=== PATIENT | female | born 1945 | race Caucasian/White ===

== ENCOUNTER 2018-06-17 10:35 | Outpatient (CLI) | payer MEDICARE, SELFPAY ==
[2018-06-17 13:08] LABS: ALT 64 U/L (12-78); AST 47 U/L (15-37); Alkaline Phosphatase 83 U/L (46-116); Anion Gap 9.4 mmol/L (3-11); BUN 8 mg/dL (7-18); Bilirubin, Total 0.5 mg/dL (0.2-1.0); CO2 30.6 mmol/L (21.0-32.0); CREATININE 0.71 mg/dL (0.55-1.02); Calcium 9.4 mg/dL (8.5-10.1); Chloride 101 mmol/L (98-107); Cholesterol 261 mg/dL (50-200); Glucose 96 mg/dL (70-100); HDL Cholesterol 95 mg/dL (40-60); LDL CHOLESTEROL 138 mg/dL (<100); Potassium 3.5 mmol/L (3.5-5.1); Sodium 141 mmol/L (136-145); Total Protein 7.1 g/dL (6.4-8.2); Triglyceride 118 mg/dL (30-150)
[2018-06-19 07:30] LABS: Vitamin D 25 Total 50.6 ng/ml (30-100)
== END 2018-06-17 10:55 ==
PROVIDERS: PCP Family Medicine; Visit Provider Family Medicine
DX: I10 Essential (primary) hypertension (principal); E55.9 Vitamin D deficiency, unspecified
CPT/HCPCS: 36415; 80053; 80061; 82306; 83721

== ENCOUNTER 2018-06-30 14:12 | Outpatient (REF) | payer MEDICARE, SELFPAY ==
--- NOTE | 2018-06-30 13:30 | PAPFT_PTH ---
PATIENT: Pipe Love LOC: [facility] U#:[id number] AGE/SX: 72/F ROOM: RE06/30/[address]: CARMINE Giron : 1945 BED: DIS: 06/30/2018 SPEC #: [id number] RECD: 06/30/18 17:56 STATUS: SVEN REDharmesh #: [id number] ADIN: 06/30/18 13:[address]: Salome Garcia DEPT: [facility] Cytology RECD BY: Melania Knapp ENTERED: 06/30/18 17:56 SP TYPE: PAPFT OTHR DR: Jud De La Paz MD, DC Tissues: 1 - CX/ENDOCX FOR PAP SMEARS Procedures: PAP THIN PREP/UVM Screening Comments: [id number]
== END 2018-06-30 14:32 ==
LOC: LBN 14:12
PROVIDERS: PCP Family Medicine; Visit Provider Nurse Practitioner Family
DX: Z12.4 Encounter for screening for malignant neoplasm of cervix (principal)
CPT/HCPCS: 88142

== ENCOUNTER 2018-11-13 08:27 | Outpatient (CLI) | payer MEDICARE, SELFPAY ==
--- NOTE | 2018-11-13 08:37 | DI.US_ITS ---
SYMPTOM/DIAGNOSIS; ENLARGING THYROID, ENLARGED THYROID GLAND E04.9, NONTOXIC GOITER THYROID ULTRASOUND: 11/13/18 Thyroid ultrasound was performed according to the usual protocol. Right thyroid lobe measures 48 x 17 x 14 mm. The left thyroid lobe measures 41 x15 x 17 mm Thyroid parenchyma is mildly heterogeneous. There are multiple small intraparenchymal cysts seen in both thyroid lobes. There is complex mass measuring 14 mm in greatest diameter with mildly increased intralesional vascular flow in the mid pole of the left thyroid lobe. CONCLUSION: Indeterminate left thyroid lobe 14 mm mass. Follow up ultrasound suggested in 6 months. Tissue sampling may be considered if clinically indicated.
[2018-11-13 09:48] LABS: TSH (W/Ref FT4) 1.61 uIU/mL (0.36-3.74)
== END 2018-11-13 08:47 ==
PROVIDERS: PCP Family Medicine; Visit Provider Family Medicine
DX: E04.1 Nontoxic single thyroid nodule (principal); E07.89 Other specified disorders of thyroid
CPT/HCPCS: 36415; 76536; 84443

== ENCOUNTER 2018-12-15 10:58 | Outpatient (CLI) | payer MEDICARE, SELFPAY ==
[2018-12-15 13:02] LABS: TSH (W/Ref FT4) 1.78 uIU/mL (0.36-3.74)
--- NOTE | 2018-12-15 13:38 | DI.RAD_ITS ---
SYMPTOMS/DIAGNOSIS: CERVICALGIA X 3 MOS, M54.2 CERVICAL SPINE: Eight views were obtained. Prevertebral soft tissues appear intact. Intervertebral disc spaces appear fairly well maintained. Mild hypertrophic spurring seen involving the facet joints throughout the cervical region and there is anterior endplate spurring at the C6-7 level. No gross erosive or destructive lesions seen. Neural foramina appear predominantly well maintained with questioned narrowing left neural foramen at C6-7 level. CONCLUSION: Degenerative changes of the cervical spine as described above.
== END 2018-12-15 11:18 ==
PROVIDERS: PCP Family Medicine; Visit Provider Family Medicine
DX: E07.9 Disorder of thyroid, unspecified (principal); M54.2 Cervicalgia; M47.812 Spondylosis without myelopathy or radiculopathy, cervical region
CPT/HCPCS: 36415; 72050; 84443

== ENCOUNTER 2019-06-23 11:47 | Outpatient (CLI) | payer MEDICARE, SELFPAY ==
[2019-06-23 13:59] LABS: FREE T4 0.98 ng/dL (0.76-1.46); TSH 1.68 uIU/mL (0.36-3.74)
[2019-06-23 16:21] LABS: T3,Free 4.1 pg/mL (2.8-5.3)
[2019-06-23 16:33] LABS: T3, Total 136 ng/dL (97-169)
[2019-06-24 09:04] LABS: Thyroglobulin Antibody 17 U/mL (<=60); Thyroperoxidase Antibody <28 U/mL (<=60)
[2019-06-25 15:07] LABS: Thyroid Stimulating Immunoglob <1.0 TSI index (<=1.3)
== END 2019-06-23 12:07 ==
PROVIDERS: PCP Family Medicine; Visit Provider Family Medicine
DX: E06.3 Autoimmune thyroiditis (principal); E07.9 Disorder of thyroid, unspecified; I10 Essential (primary) hypertension
CPT/HCPCS: 36415; 86376; 84439; 84443; 84445; 84480; 84481

== ENCOUNTER 2019-09-02 01:07 | Outpatient (CLI) | payer MEDICARE, SELFPAY ==
--- NOTE | 2019-09-02 12:28 | DI.MAMMO_ITS ---
EXAM: MAMMO SCREENING CLINICAL HISTORY: screening,Z12.39 TECHNIQUE: Mammograms were interpreted according to the usual protocol including computer analysis w thinking[employer] CAD system, tomosynthesis and C-view imaging. COMPARISON: 2010 through 2017 FINDINGS: The breasts are composed of heterogeneously dense fibroglandular densities, Breast Density category C . No suspicious masses or suspicious microcalcifications are seen. No skin thickening or abnormal axillary lymph nodes are seen. There has been no significant change from prior exams. IMPRESSION: BI-RADS Category 1: Negative mammogram. Yearly screening mammography is recommended. Breast density category C, heterogeneously dense tissue which decreases the sensitivity of the mammog beltran. The mammogram demonstrates the patient's breast tissue is dense. Dense breast tissue is very common a nd is not abnormal but dense breast tissue can make it harder to find cancer on a mammogram. Also, de nse breast tissue may increase breast cancer risk. This information about the result of the mammogram report was provided to the patient to raise their awareness. Use this report when you speak with the patient about their risks for breast cancer, which includes their family history. At that time, you may recommend additional screening tests (Ultrasound or MRI) as they might be useful based on their r isk. A negative radiographic report should not delay biopsy if a dominant or clinically suspicious mass is present. Up to ten percent of cancers are not identified on mammography. A negative report may reinforce clinical impression. Adenosis and dense breasts may obscure an underlying neoplasm. False positive reports average 6 to 10%.
== END 2019-09-02 01:27 ==
PROVIDERS: PCP Family Medicine; Visit Provider Family Medicine
DX: Z12.31 Encounter for screening mammogram for malignant neoplasm of breast (principal)
CPT/HCPCS: 77063; 77067

== ENCOUNTER 2020-01-22 14:26 | Outpatient (REF) | payer MEDICARE, SELFPAY ==
--- NOTE | 2020-01-22 14:00 | PAPFT_PTH ---
PATIENT: Pipe Love LOC: [facility] U#:[id number] AGE/SX: 74/F ROOM: RE01/22/[address]: CARMINE Giron : 1945 BED: DIS: 01/22/2020 SPEC #: [id number] RECD: 01/22/20 15:54 STATUS: WALLYFidelina REQ #: [id number] ADIN: 01/22/20 14:[address]: Salome Garcia DEPT: [facility] Cytology RECD BY: Isaura Thompson ENTERED: 01/22/20 15:55 SP TYPE: PAPFT OTHR DR: Jud De La Paz MD, DC Tissues: 1 - CX/ENDOCX FOR PAP SMEARS Procedures: PAP THIN PREP/UVM Screening HPV DNA PROBE Comments: [id number]
== END 2020-01-22 14:46 ==
LOC: LBN 14:26
PROVIDERS: PCP Family Medicine; Visit Provider Nurse Practitioner Family
DX: Z12.4 Encounter for screening for malignant neoplasm of cervix (principal); Z11.51 Encounter for screening for human papillomavirus (HPV); Z87.42 Personal history of other diseases of the female genital tract; Z86.002 Personal history of in-situ neoplasm of other and unspecified genital organs
CPT/HCPCS: 88142; 87624

== ENCOUNTER 2020-03-23 13:13 | Observation (INO) | payer MEDICARE, SELFPAY ==
[2020-03-23] VITALS (26 sets, daily range): BP systolic 105–149; BP diastolic 57–93; PULSE 67–87; RESP 12–38; TEMP 36.4–36.6; O2SAT 94–97
--- NOTE | 2020-03-23 13:15 | RT.EKG_ITS ---
APPROVED REPORT Exam: Resting ECG Patient Location: E HR:81 bpm ECG Measurements Heart Rate 81 AXIS [place] 192 P 62 QRSd 89 QRS 0 QT 413 T 56 QTc 479 Conclusion Sinus rhythm...normal P axis, V-rate 60- 99 Ventricular bigeminy...bigeminy string>4 w/ V complexes Low voltage, precordial leads...precordial leads <1.0mV Borderline ST depression, anterolateral leads...ST <-0.07mV, I aVL V2-V6
[2020-03-23] MEDS: Normal Saline Flush 10 ML SYR IVP ×2 (13:25→19:26)
[2020-03-23] MEDS: Aspirin 81 MG CHEW 324 MG CH (13:33)
[2020-03-23 13:36] LABS: Abs Immature Grans 0.02 10^3/uL (0.0-0.06); Absolute Basophil Count 0.02 10^3/uL (0.0-0.2); Absolute Eosinophil Count 0.26 10^3/uL (0.0-0.7); Absolute Lymphocyte Count 2.61 10^3/uL (1.2-3.4); Absolute Monocyte Count 0.77 10^3/uL (0.1-0.8); Absolute Neutrophil Count 5.23 10^3/uL (1.2-6.7); Basophils % 0.2; Eosinophils % 2.9; HCT 44.8 % (36.0-46.0); HGB 15.5 g/dL (11.2-15.7); Immature Grans % 0.2; Lymphocytes % 29.3; MCH 36.2 pg (27.0-33.0); MCHC 34.6 % (32.0-36.0); MCV 104.7 fL (80-95); MPV 8.8 fL (8.0-11.0); Monocytes % 8.6; Neutrophils % 58.8; Nucleated RBC 0 %; Platelet Count 235 10^3/uL (130-400); RBC 4.28 10^6/uL (3.93-5.22); RDW 12.3 % (11.7-14.6); WBC 8.91 10^3/uL (4.4-10.8)
--- NOTE | 2020-03-23 13:43 | DI.CT_ITS ---
EXAM: CT CHEST PE CTA CLINICAL HISTORY: Chest pain, SOB. TECHNIQUE: Imaging Protocol: CT angiography of the chest was performed using pulmonary embolus ken col. Multi planar reconstructions were performed. CONTRAST MATERIAL: Intravenous: Omnipaque 350 Contrast volume: 100 cc COMPARISON: No exams were available for comparison FINDINGS: CHEST: PULMONARY ARTERIES: There are no intraluminal filling defects to suggest acute pulmonary emboli. LUNGS: There are no infiltrates nor evidence of pulmonary infarction.. There is a 4 millimeter noncal cified nodule in the right upper lobe (series 5/image 26). Also subtle ground-glass nodular infiltra reji in the right upper lobe noted,. Another 3 millimeter nodule contiguous with the major fissure. In the opposite-left lung there is a 5 millimeters subpleural nodule in the superior segment of the l eft lower lobe. Also small subpleural bullae are noted. No pleural effusions. MEDIASTINUM: There is no hilar nor mediastinal adenopathy. Visualized thyroid unremarkable. CARDIAC: Heart size is normal. There is no pericardial effusion.Caliber of the thoracic aorta is wit hin normal limits. There is no evidence of shift of the interventricular septum. OSSEOUS: No significant osseous lesions.. PARTIALLY VISUALIZED UPPERMOST ABDOMEN: There is a subcapsular lesion in the right hepatic lobe which is well-defined and measures 2.6 by 1.7 centimetres. Difficult to determine nature this well-define d lesion on this type study. Possibly a cyst. Recommend ultrasound as a next step. IMPRESSION: 1. No evidence of acute pulmonary emboli. No evidence of pulmonary infarction.No pleural effusions. 2. Incidentally noted are small nodular densities in the lung zhou as described above measuring up to 5 millimeters and requiring appropriate follow-up. 3. Well-defined subcapsular 26 x 17 millimeter finding in the right hepatic lobe which is difficult t o assess on this type of study. Possibly cyst. Recommend ultrasound follow-up. RADIATION DOSE DELIVERED: 412.67mGy.cm Total DLP DATA REPOSITORY: All CT scans at this facility are submitted to the National Radiology Data Registry (NRDR) Dose Index Registry (DIR) with the [employer] (ACR). RADIATION OPTIMIZATION: All CT scans at this facility use at least one of these dose optimization te chniques: automated exposure control; mA and/or kV adjustment per patient size (includes targeted exa ms where dose is matched to clinical indication); or iterative reconstruction.
--- NOTE | 2020-03-23 13:43 | W.ED.GENAD ---
Discharge Plan Disposition Patient Disposition: [facility] INPATIENT Condition: Stable Discharge Details Clinical Impression: Acute hypokalemia, Chest pain Primary Care Provider: Jud De La Paz ED Provider: Jennifer Elliott Home Meds and New Rx's Prescriptions: No Action red yeast rice 600 mg capsule 600 mg PO DAILY RF: 0 gwuinss-jfkovvxqv-upet Tablet See Rx Instructions PO DAILY RF: 0 CENTRUM SILVER TABLET 1 EACH tablet 1 ea PO DAILY RF: 0 cholecalciferol (vitamin D3) 1,000 UNIT capsule 1,000 unit PO DAILY RF: 0 hydrochlorothiazide 12.5 mg tablet 12.5 mg PO DAILY Qty: 90 RF: 12 verapamil 120 mg tablet extended release 120 mg PO DAILY Qty: 90 RF: 12 Medical Decision Making 74-year-old female presents to the ED with chief complaint of chest pain or shortness of breath. Patient states at 4 AM chest pain woke her up out of her sleep. She describes it as midsternal with radiation up into her bilateral shoulders and into her bilateral neck. She thought that it might be indigestion. She said it gradually decreased over time. She rates it a 1 out of 10 currently. She is having a little bit of belching. She did take 2 baby aspirins prior to arrival. 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 tach which she takes verapamil for. She does have a history of hypertension, hyperlipidemia, mild intermittent asthma. She does not smoke. Pain increases with deep breathing. She did travel recently in a car to [place] which approximately 1 hour and 1/[address] Work-up ordered including CBC, CMP, serial troponins, EKG, CT chest PE protocol rule out PE. Heart score is a 5 EKG was reviewed by Dr. Ha Maldonado MD ER attending, please see his official report. 1358: Critical potassium received from the lab testing is 2.9. Magnesium is 1.7, Will order 1 gm Magnesium and will give 40 meq Kcl PO liquid now. Initial troponin is negative. 1610: Patient returns from CT chest has increasing chest pain. Nitro 0.4 mg sublingual as needed chest pain x3 ordered. Patient received 1 sublingual 0.4 mg nitro which brought her pain from a 3-4 down to 1-2. Her blood pressure went from 140 systolic to 108 systolic. Discussed recommendation for admission for serial troponin and echocardiogram and stress testing which patient agrees to the plan. Parth jimenez hospitalist. 1546: Spoke with Dr. Moffett who agrees to accept patient for cardiac rule out. CT chest Result: IMPRESSION: 1. No evidence of acute pulmonary emboli. No evidence of pulmonary infarction.No pleural effusions. 2. Incidentally noted are small nodular densities in the lung zhou as described above measuring up to 5 millimeters and requiring appropriate follow-up. 3. Well-defined subcapsular 26 x 17 millimeter finding in the right hepatic lobe which is difficult to assess on this type of study. Possibly cyst. Recommend ultrasound follow-up. HPI General Mode of arrival: ambulatory. Date/Time Provider Initiated Documentation: 03/23/20 13:13. Limitations to Documentation: no limitations. Information obtained by: patient. HPI Narrative: 74-year-old female presents to the ED with chief complaint of chest pain or shortness of breath. Patient states at 4 AM chest pain woke her up out of her sleep. She describes it as midsternal with radiation up into her bilateral shoulders and into her bilateral neck. She thought that it might be indigestion. She said it gradually decreased over time. She rates it a 1 out of 10 currently. She is having a little bit of belching. She did take 2 baby aspirins prior to arrival. 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 tach which she takes verapamil for. She does have a history of hypertension, hyperlipidemia, mild intermittent asthma. She does not smoke. Pain increases with deep breathing. She did travel recently in a car to [place] which approximately 1 hour and 1/[address] Related Data Home Medications Medication Instructions Recorded Confirmed Centrum Silver Tablet 1 ea PO DAILY 08/26/12 12/22/19 cholecalciferol (vitamin D3) 1,000 unit PO DAILY 10/29/17 12/22/19 red yeast rice 600 mg capsule 600 mg PO DAILY 06/17/18 12/22/19 hydrochlorothiazide 12.5 mg tablet 12.5 mg PO DAILY #90 tab 06/16/19 12/22/19 verapamil 120 mg tablet,extended 120 mg PO DAILY #90 tab-cap 06/16/19 12/22/19 release [id number]-[id number] tablet See Rx Instructions PO DAILY tab 06/23/19 12/22/19 Previous Rx's Medication Instructions Recorded hydrochlorothiazide 12.5 mg tablet 12.5 mg PO DAILY #90 tab 06/16/19 verapamil 120 mg tablet,extended 120 mg PO DAILY #90 tab-cap 06/16/19 release Allergies Allergy/AdvReac Type Severity Reaction Status Date / Time Sulfa (Sulfonamide AdvReac Severe Bloody Unverified 03/23/20 13:26 Antibiotics) diarrhea ciprofloxacin [From Cipro] AdvReac Intermediate BLOODY Unverified 03/23/20 13:26 DIARRHEA bug spray Allergy Intermediate asthma Uncoded 03/23/20 13:26 General Stated Complaint: Chest Pain BRYCE: 2 Review of Systems Narrative: Constitutional: Negative for weight loss, alert and oriented, well groomed, normal body habitus, appears comfortable. HEENT: Denies trauma, headaches, blurry vision, nasal discharge, sore throat, trouble swallowing. Chest: Denies palpitations, irregular rhythm, positive chest pain, Respiratory: Denies cough, hemoptysis. Reports increased shortness of breath and increased pain with deep breathing. GI: Denies abdominal pain, nausea, vomiting, diarrhea, constipation. : Denies dysuria, hematuria, flank pain, rectal bleeding. Neuro: Denies dizziness, blurry vision, weakness, syncope, headache or facial numbness. Hematologic: Denies easy bruising, intolerance to heat or cold, hair loss. 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) Essential hypertension Sari's disease Hyperlipidemia Irritable colon (05/31/08) Labial lesion (12/15/14) Metatarsal bone fracture (05/31/08) Mild intermittent asthma (03/08/17) Osteopenia (05/31/08) Personal history of cervical dysplasia (07/05/11) CIS 1992 w/ Laser cone BX HSIL LES 1997 w/ excisional cone BX-treated in [place] at [facility] exposure to MOHSEN Polyp of colon 10/14/06 TUBULAR ADENOMA 01/10/11 TA on three year recall for colonoscopy tubular adenoma, 08/07/16, dr go Seasonal allergic rhinitis Smoker (05/31/08) Thyroid mass (~11/13/18) 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 2 aunts Breast cancer Father , age 42 Alcohol abuse Brother Essential hypertension Hyperlipidemia Maternal Grandfather , age 72 No problems noted. Paternal Grandfather No problems noted. Maternal Grandmother , age 93 Essential hypertension Paternal Grandmother No problems noted. Sister No problems noted. Daughter No problems noted. Social History Smoking/Tobacco Use Status: Former Tobacco Use Quit Date: 04/08/84 Tobacco: How many years used: 20 Smoking risk assessment performed?: Yes Alcohol Intake: current Alcohol Intake frequency: 3 or more drinks per day Alcohol type: wine Drug use: Never Caregiver/Support person: No Housing: house Communication Needs: None Do you need help understanding health information?: Rarely Pets and animals: No Sexually active: Yes Do you think of yourself as: straight/heterosexual Current gender identity: female What is your relationship status?: How often do you talk on the phone with friends or family?: three or more times per week How often do you get together with friends or relatives?: once per week How often do you attend voodoo or adventist services?: decline to answer Do you belong to any clubs or organized social groups?: no Panel score (0-1 are the most socially isolated patients): 1 What type of physical activity do you participate in: decline to answer Duration: decline to answer Frequency: decline to answer Zakiya/Religious: None Special zakiya needs: No Seatbelt use: always Helmet use: Yes Helmet use: always Drive intox or ride w/intox team driver: No Do you feel safe at home: Yes Do you feel safe in your relationship?: Yes Exam Narrative Exam Narrative: Constitutional: Alert and oriented x3. Appears stated age. Normal body habitus. Head: Normocephalic, no trauma. Eyes: Pupils PERRLA, Red reflex noted, EOM's intact. Eyelids symmetrical without lesions, discharge, or swelling. ENT: Bilateral TM's WNL, External ear normal to inspection, no mastoid TTP, swelling, or erythema, Nasal turbinates WNL, no nasal discharge. Normal dentition, Posterior pharynx WNL, no exudate. Chest: RRR, Normal S1, S2, distal pulses intact. Chest is nontender to palpation chest pain is nonreproducible. Resp: Lungs clear to auscultation bilaterally, no wheezes, rales, or rhonchi. Musculoskeletal: Normal gait, 5/5 strength to all four extremities. Skin: No suspicious rashes or lesions. Capillary refill less than 2 sec. Neurologic: Cranial nerves II-XII intact. Alert and oriented x 3. DTR's intact. Hematologic/Lymphatic: No ecchymosis, no lymphadenopathy. Course Vital Signs Vital signs: Vital Signs Temperature 36.4 C L 03/23/20 13:18 Pulse 74 03/23/20 13:18 Respiratory Rate 12 03/23/20 13:18 Blood Pressure 138/75 03/23/20 13:18 Pulse Oximetry 97 03/23/20 13:18 Temperature 36.4 C L 03/23/20 13:18 Temperature Source Skin 03/23/20 13:18 Pulse 74 03/23/20 13:18 Respiratory Rate 14 03/23/20 13:34 Respiratory Effort 03/23/20 13:34 Respiratory Depth Normal 03/23/20 13:34 Respiratory Pattern Normal 03/23/20 13:34 Blood Pressure 138/75 03/23/20 13:18 Pulse Oximetry 97 03/23/20 13:18 Oxygen Delivery Method Room Air 03/23/20 13:18 Oxygen Flow Rate 0 03/23/20 13:18 Pain Level 1 03/23/20 13:34 Lab/Test Results Lab/Test Results: Laboratory Tests Range/Units 03/23/20 13:30 WBC (4.4-10.8) 10^3/uL 8.91 RBC (3.93-5.22) 10^6/uL 4.28 Hgb (11.2-15.7) g/dL 15.5 Hct (36.0-46.0) % 44.8 MCV (80-95) fL 104.7 H MCH (27.0-33.0) pg 36.2 H MCHC (32.0-36.0) % 34.6 RDW (11.7-14.6) % 12.3 Plt Count (130-400) 10^3/uL 235 MPV (8.0-11.0) fL 8.8 Immature Gran % 0.2 Neutrophils % 58.8 Lymphocytes % 29.3 Monocytes % 8.6 Eosinophils % 2.9 Basophils % 0.2 Nucleated RBC % % 0 Absolute Neutrophils (1.2-6.7) 10^3/uL 5.23 Absolute Lymphocytes (1.2-3.4) 10^3/uL 2.61 Absolute Monocytes (0.1-0.8) 10^3/uL 0.77 Absolute Eosinophils (0.0-0.7) 10^3/uL 0.26 Absolute Basophils (0.0-0.2) 10^3/uL 0.02
[2020-03-23 13:54] LABS: ALT 187 U/L (14-59); AST 126 U/L (15-37); Albumin 3.9 g/dL (3.4-5.0); Alkaline Phosphatase 78 U/L (46-116); Anion Gap 10.5 mmol/L (3-11); BUN 8 mg/dL (7-18); Bilirubin, Total 0.5 mg/dL (0.2-1.0); CO2 28.5 mmol/L (21.0-32.0); CREATININE 0.73 mg/dL (0.55-1.02); Calcium 9.5 mg/dL (8.5-10.1); Chloride 99 mmol/L (98-107); Glucose 104 mg/dL (74-106); Magnesium 1.7 mg/dL (1.8-2.4); Sodium 138 mmol/L (136-145); Total Protein 7.5 g/dL (6.4-8.2)
[2020-03-23 13:58] LABS: Potassium 2.9 mmol/L (3.5-5.1); Troponin I < 0.05 ng/mL (<0.06)
[2020-03-23 14:02] LABS: TSH (W/Ref FT4) 1.34 uIU/mL (0.36-3.74)
[2020-03-23] MEDS: Potassium Chloride Liquid 20 MEQ PKT 40 MEQ PO (14:31)
[2020-03-23] MEDS: MAGNESIUM SULFATE 1 GM/100 ML BAG IVPB (14:32)
[2020-03-23] MEDS: Omnipaque 350 MG/ML 100 ML BTL IJ (14:57)
[2020-03-23] MEDS: Normal Saline - Diluent 50 ML VIAL IV (14:58)
[2020-03-23] MEDS: nitroGLYcerin 0.4 MG TAB SL (15:13)
[2020-03-23 16:47] LABS: Troponin I < 0.05 ng/mL (<0.06)
[2020-03-23] MEDS: Famotidine 20 MG TAB PO (17:32)
[2020-03-23] MEDS: Potassium Chloride Liquid 20 MEQ PKT PO (19:06)
[2020-03-23 21:50] LABS: Troponin I < 0.05 ng/mL (<0.06)
[2020-03-24 05:43] VITALS: BP 104/55; PULSE 85; RESP 18; TEMP 36.5; O2SAT 96
[2020-03-24] MEDS: Normal Saline Flush 10 ML SYR IVP (05:51)
[2020-03-24 07:20] VITALS: BP 131/79; PULSE 82; RESP 19; TEMP 36.7; O2SAT 98
[2020-03-24 07:23] LABS: Anion Gap 8.6 mmol/L (3-11); BUN 10 mg/dL (7-18); CO2 27.4 mmol/L (21.0-32.0); CREATININE 0.82 mg/dL (0.55-1.02); Calcium 8.9 mg/dL (8.5-10.1); Chloride 102 mmol/L (98-107); Glucose 112 mg/dL (74-106); Magnesium 1.7 mg/dL (1.8-2.4); Potassium 3.5 mmol/L (3.5-5.1); Sodium 138 mmol/L (136-145)
[2020-03-24 07:28] LABS: Troponin I < 0.05 ng/mL (<0.06)
[2020-03-24] MEDS: Potassium Chloride Liquid 20 MEQ PKT PO (07:36)
[2020-03-24 07:37] VITALS: PULSE 87
[2020-03-24] MEDS: hydroCHLOROthiazide 12.5 MG TAB PO (08:12)
[2020-03-24] MEDS: Cholecalciferol (Vitamin D3) 1,000 UNIT TAB 1000 UNITS PO (08:12)
--- NOTE | 2020-03-24 08:27 | DI.US_ITS ---
APPROVED REPORT EXAM: Comprehensive 2D, Doppler, and color-flow Echocardiogram Patient Location: In-Patient [facility] [employer] Tender: Adrienne Brownlee RDCS (AE) Indications: Chest pain, HTN, SOB Other Information Study Quality: Fair Conclusion Left Ventricle : The left ventricle is normal size. The left ventricular systolic function is normal. The left ventricular ejection fraction is within the normal range. There is normal left ventricular wall thickness. There is normal LV segmental wall motion. The left ventricular diastolic function is normal. LVEF is 60%. Right Ventricle : The right ventricle is normal size. The right ventricular systolic function is norm al. The RVSP is 30.9 mmHg. Atria : The left atrium size is normal. The right atrium size is normal. Valves: There are no hemodynamically significant valvular lesions Great Vessels : The aortic root is normal in size. The ascending aorta is normal in size. Descending aorta is normal in caliber. IVC is normal in size and collapses >50% with inspiration. Compared to study from 05/28/2013, there is no significant change. Wall motion Left Ventricle The left ventricle is normal size. The left ventricular systolic function is normal. The left ventric ular ejection fraction is within the normal range. There is normal left ventricular wall thickness. T here is normal LV segmental wall motion. The left ventricular diastolic function is normal. There is no ventricular septal defect visualized. LVEF is 60%. Right Ventricle The right ventricle is normal size. The right ventricular systolic function is normal. The RVSP is 30 .9 mmHg. Atria The left atrium size is normal. The right atrium size is normal. The interatrial septum is intact wit h no evidence for an atrial septal defect. Aortic Valve The aortic valve is normal in structure. Aortic valve is trileaflet. There is no aortic valvular sten osis. No aortic regurgitation is present. Mitral Valve The mitral valve is normal in structure. There is mitral annular calcification. The mitral valve chor valentine are thickened and/or calcified. No evidence of mitral valve stenosis. Trace mitral regurgitation. Tricuspid Valve The tricuspid valve is normal in structure. There is no tricuspid valve stenosis. Trace tricuspid reg urgitation. Pulmonic Valve The pulmonary valve is normal in structure. There is no pulmonic valvular stenosis. Trace pulmonic re gurgitation. Great Vessels The aortic root is normal in size. The ascending aorta is normal in size. Descending aorta is normal in caliber. IVC is normal in size and collapses >50% with inspiration. Pericardium There is no pericardial effusion. 2D Dimensions IVSD d PLAX 0.96 cm F: 0.6-1.0 LV Vol A2C d MOD 72.9 mL LVPW d PLAX 0.99 cm F: 0.6 - 1.0 LV Vol A4C d MOD 61.6 mL LVID d PLAX 4.33 cm F: 3.8 - 5.2 LA vol/ BSA A2C s A-L 39.2 mL/m2 LVDs 2.90 cm F: 2.2 - 3.5 LA vol/ BSA A4C s A-L 37.0 mL/m2 Ao Root d 2.71 cm F: 2.7 - 3.3 LA Vol/ BSA Biplane s A-L 38.5 mL/m2 RA Area A4C 15.17 cm2 LA Area A4C s MOD 20.97 cm2 RA Vol/ BSA A4C s A-L 22.3 mL/m2 LA Area A2C s MOD 21.38 cm2 Ao Asc Diam d 2.71 cm F: 2.3 - 3.1 LV EF A4C MOD 59.5 % LV EF Teichholz 60.6 % LV EF A2C MOD 56.6 % LVEF (Massey's) 58.38 % F: 54 - 74 LV EF Biplane MOD 58.4 % LV Volume 54.50 mL F: 46 - 106 SV 41.02 mL LV Volume Index 30.11 mL/m2 F: 29 - 61 SV Index 22.62 mL/m2 LV Vol Biplane MOD 70.3 mL FS 32.15 % M-Mode TAPSE 1.67 cm (M/F) >1.7 LV Diastology MV E' medial 0.090 (>0.07 m/s) E/A Ratio 0.9 LV E/e MED 8.15 (<14) MV E Vmax 0.73 (0.4-1.3 m/s) MV E' lateral 0.079 (>0.1 m/s) MV A Vmax 0.85 (0.4-1.3 m/s) LV E/e LAT 9.25 (<14) MV E/A Ratio 0.85 MV E/E' medial 8.16 MV E/E' lateral 9.27 Aortic Valve LVOT Area 2.78 cm2 AoV Area Vmax 2.34 cm2 LVOT Vmax 1.26 m/s AoV Area/ BSA (Vmax) 1.29 cm2/m2 LVOT Mean Taj. 0.74 m/s RUDOLPH Mean Taj. 2.06 cm2 LVOT Peak Grad 6.4 mmHg RUDOLPH Mean Taj. Index 1.14 cm2/m2 LVOT Mean Grad 2.7 mmHg LVOT VTI 0.240 m LVOT Diam s 1.85 cm AoV Vmax 1.50 m/s Velocity Ratio 0.84 AoV Mean Taj. 1.00 m/s AoV Peak Grad 9.0 mmHg LVOT SV 66.69 mL AoV Mean Grad 4.6 mmHg AoV VTI 0.291 m AoV Area VTI 2.29 cm2 AoV Area/ BSA (VTI) 1.26 cm/m2 Mitral Valve MV DT 211 (160-240 msec) MV PHT 61 msec MV Area PHT 3.59 cm2 MV VTI 0.214 m MV VTI Annulus 0.213 m MV Area VTI 3.12 (4.0-6.0 cm2) Pulmonary Valve PV Vmax 1.28 (0.5-1.5 m/s) RVOT Peak Gr. 2.97 mmHg PV Peak Grad 6.5 mmHg RVOT Mean Gr. 1.45 mmHg PV Mean Grad 3.3 mmHg RVOT VTI 0.188 m PV VTI 0.277 m RVOT Vmax 0.86 m/s Tricuspid Valve TR Peak Grad 27.8 mmHg TR Vmax 2.64 m/s RA Pressure 3.00 mmHg RVSP (TR) 30.9 mmHg
[2020-03-24 09:24] LABS: COVID-19 RT-PCR UVMMC Result Negative (Negative)
[2020-03-24] MEDS: Potassium Chloride 20 MEQ TABCR PO (09:24)
[2020-03-24] MEDS: Magnesium Oxide 400 MG TAB 800 MG PO (09:24)
--- NOTE | 2020-03-24 10:04 | W.PM.HP.N ---
Date of service: 03/23/20 Time of Service: 16:39 Assessment and Plan Assessment and plan (1) Chest pain: Status: Acute Assessment and plan: Atypical but has risk factors. Complete a series of troponin levels. Echocardiogram in the AM Telemetry. ASA daily. (2) Sari's disease: Status: Acute Assessment and plan: Normal TSH (3) Essential hypertension: Status: Chronic Assessment and plan: Cont HCTZ 12.5 mg daily. Monitor SBP 105-149 since presentation. (4) Hyperlipidemia: Status: Chronic Assessment and plan: Not on a medication. LDL on 06/17/2018 was 138. 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 She presented at the encouragement of her daughter after experiencing CP at 4 AM the morning of admission. She states that substernal CP that radiated to both sides of her neck and into her back woke her from sleep. She thought it might be reflux; took an antacid and Ibuprofen and it gradually decreased over time. Her pain was a 1/10 on arrival. She also took 2 baby aspirin later. She describes the discomfort now as mid sternal and occuring with a deep breath or leaning forward. No palpitations. She did initially experience mild SOA with the pain. No F/C, cough/sputum, runny nose, body aches. In the ED a CTA chest was negative for pulmonary embolism or other acute findings. Incidentally noted were small nodular densities in the lung zhou as described above measuring up to 5 millimeters and requiring appropriate follow-up. also noted was a well-defined subcapsular 26 x 17 millimeter finding in the right hepatic lobe which is difficult to assess on this type of study. Possibly cyst. Recommend ultrasound follow-up. Troponin x2 negative in the ED. + low K and Mg; replacement initiated. 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) Essential hypertension Sari's disease Hyperlipidemia Irritable colon (05/31/08) Labial lesion (12/15/14) Metatarsal bone fracture (05/31/08) Mild intermittent asthma (03/08/17) Osteopenia (05/31/08) Personal history of cervical dysplasia (07/05/11) CIS 1992 w/ Laser cone BX HSIL LES 1997 w/ excisional cone BX-treated in [place] at [facility] exposure to MOHSEN Polyp of colon 10/14/06 TUBULAR ADENOMA 01/10/11 TA on three year recall for colonoscopy tubular adenoma, 08/07/16, dr go Seasonal allergic rhinitis Smoker (05/31/08) Thyroid mass (~11/13/18) 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 2 aunts Breast cancer Father , age 42 Alcohol abuse Brother Essential hypertension Hyperlipidemia Maternal Grandfather , age 72 No problems noted. Paternal Grandfather No problems noted. Maternal Grandmother , age 93 Essential hypertension Paternal Grandmother No problems noted. Sister No problems noted. Daughter No problems noted. Social History Smoking/Tobacco Use Status: Former Tobacco Use Quit Date: 04/08/84 Tobacco: How many years used: 20 Smoking risk assessment performed?: Yes Alcohol Intake: current Alcohol Intake frequency: 3 or more drinks per day Alcohol type: wine Drug use: Never Caregiver/Support person: No Housing: house Communication Needs: None Do you need help understanding health information?: Rarely Pets and animals: No Sexually active: Yes Do you think of yourself as: straight/heterosexual Current gender identity: female What is your relationship status?: How often do you talk on the phone with friends or family?: three or more times per week How often do you get together with friends or relatives?: once per week How often do you attend latter-day or latter-day services?: decline to answer Do you belong to any clubs or organized social groups?: no Panel score (0-1 are the most socially isolated patients): 1 What type of physical activity do you participate in: decline to answer Duration: decline to answer Frequency: decline to answer Zakiya/Restorationist: None Special zakiya needs: No Seatbelt use: always Helmet use: Yes Helmet use: always Drive intox or ride w/intox dedicated truck driver: No Do you feel safe at home: Yes Do you feel safe in your relationship?: Yes Meds Home Medications and Allergies Home Medications Medication Instructions Recorded Confirmed Type Centrum Silver Tablet 1 ea PO DAILY 08/26/12 12/22/19 History cholecalciferol (vitamin D3) 1,000 unit PO DAILY 10/29/17 12/22/19 History red yeast rice 600 mg capsule 600 mg PO DAILY 06/17/18 12/22/19 History hydrochlorothiazide 12.5 mg tablet 12.5 mg PO DAILY #90 tab 06/16/19 12/22/19 Rx verapamil 120 mg tablet,extended 120 mg PO DAILY #90 tab-cap 06/16/19 12/22/19 Rx release [id number] tablet See Rx Instructions PO DAILY tab 06/23/19 12/22/19 History Allergies Allergy/AdvReac Type Severity Reaction Status Date / Time Sulfa (Sulfonamide AdvReac Severe Bloody Unverified 03/23/20 13:26 Antibiotics) diarrhea ciprofloxacin [From Cipro] AdvReac Intermediate BLOODY Unverified 03/23/20 13:26 DIARRHEA bug spray Allergy Intermediate asthma Uncoded 03/23/20 13:26 Exam Const General: cooperative and no acute distress Nutritional Appearance: average body habitus Orientation: alert and oriented x3 Eyes Sclera: sclerae normal Pupils: PERRL Chest Chest: normal palpation of entire chest wall, no localized rib tenderness and no tenderness Resp Effort & Inspection: normal respiratory effort Auscultation: clear to auscultation bilaterally Cardio Rate: regular rate Rhythm: regular rhythm Heart Sounds: S1 normal, S2 normal and no murmurs GI Palpation: soft and nontender Auscultation: normal bowel sounds Skin General skin exam: no rashes or lesions noted Extrem General: no pedal edema and no calf tenderness Results Labs Result diagrams: 03/23/20 13:30 03/24/20 06:20 Labs: Laboratory Results - last 24 hr 03/23/20 03/23/20 03/23/20 13:30 13:30 13:30 WBC 8.91 RBC 4.28 Hgb 15.5 Hct 44.8 MCV 104.7 H MCH 36.2 H MCHC 34.6 RDW 12.3 Plt Count 235 MPV 8.8 Immature Gran % 0.2 Neutrophils % 58.8 Lymphocytes % 29.3 Monocytes % 8.6 Eosinophils % 2.9 Basophils % 0.2 Nucleated RBC % 0 Absolute Neutrophils 5.23 Absolute Lymphocytes 2.61 Absolute Monocytes 0.77 Absolute Eosinophils 0.26 Absolute Basophils 0.02 Sodium 138 Potassium 2.9 L* Chloride 99 Carbon Dioxide 28.5 Anion Gap 10.5 BUN 8 Creatinine 0.73 Estimated GFR/1.73 m2 >= 60.00 Glucose 104 Calcium 9.5 Magnesium 1.7 L Total Bilirubin 0.5 AST 126 H ALT 187 H Alkaline Phosphatase 78 Troponin I < 0.05 C-Reactive Protein Total Protein 7.5 Albumin 3.9 TSH 1.34 SARS-CoV-2 (PCR) Nasopharyn COVID-19 PCR Ref Test Perform Site 03/23/20 03/23/20 03/23/20 15:51 16:00 16:24 WBC RBC Hgb Hct MCV MCH MCHC RDW Plt Count MPV Immature Gran % Neutrophils % Lymphocytes % Monocytes % Eosinophils % Basophils % Nucleated RBC % Absolute Neutrophils Absolute Lymphocytes Absolute Monocytes Absolute Eosinophils Absolute Basophils Sodium Potassium Chloride Carbon Dioxide Anion Gap BUN Creatinine Estimated GFR/1.73 m2 Glucose Calcium Magnesium Total Bilirubin AST ALT Alkaline Phosphatase Troponin I < 0.05 C-Reactive Protein Total Protein Albumin TSH SARS-CoV-2 (PCR) Cancelled Negative Nasopharyn COVID-19 PCR Cancelled Not Applicable Ref Test Perform Site Cancelled [facility] 03/23/20 03/23/20 03/24/20 21:15 21:15 06:20 WBC RBC Hgb Hct MCV MCH MCHC RDW Plt Count MPV Immature Gran % Neutrophils % Lymphocytes % Monocytes % Eosinophils % Basophils % Nucleated RBC % Absolute Neutrophils Absolute Lymphocytes Absolute Monocytes Absolute Eosinophils Absolute Basophils Sodium Potassium Chloride Carbon Dioxide Anion Gap BUN Creatinine Estimated GFR/1.73 m2 Glucose Calcium Magnesium Total Bilirubin AST ALT Alkaline Phosphatase Troponin I < 0.05 < 0.05 C-Reactive Protein 4.60 H Total Protein Albumin TSH SARS-CoV-2 (PCR) Nasopharyn COVID-19 PCR Ref Test Perform Site 03/24/20 06:20 WBC RBC Hgb Hct MCV MCH MCHC RDW Plt Count MPV Immature Gran % Neutrophils % Lymphocytes % Monocytes % Eosinophils % Basophils % Nucleated RBC % Absolute Neutrophils Absolute Lymphocytes Absolute Monocytes Absolute Eosinophils Absolute Basophils Sodium 138 Potassium 3.5 Chloride 102 Carbon Dioxide 27.4 Anion Gap 8.6 BUN 10 Creatinine 0.82 Estimated GFR/1.73 m2 >= 60.00 Glucose 112 H Calcium 8.9 Magnesium 1.7 L Total Bilirubin AST ALT Alkaline Phosphatase Troponin I C-Reactive Protein Total Protein Albumin TSH SARS-CoV-2 (PCR) Nasopharyn COVID-19 PCR Ref Test Perform Site Last Vital Signs Temp 36.5 C 03/24/20 05:43 Pulse 87 03/24/20 07:37 Resp 18 03/24/20 05:43 BP 104/55 L 03/24/20 05:43 Pulse Ox 96 03/24/20 05:43 COVID-19 Screening Have you, or household traveled for leisure in last 14 days?: No Had IN PERSON contact w/suspected or confirmed C-19 person: No
--- NOTE | 2020-03-24 10:27 | DSE_ITS ---
Date of service: 03/24/20 Time of Service: 10:29 DS: Diagnosis Discharge Diagnosis (1) Chest pain: Status: Acute (2) Sari's disease: Status: Acute (3) Essential hypertension: Status: Chronic (4) Hyperlipidemia: Status: Chronic Discharge Plan Disposition Patient Disposition: HOME Condition: Stable Discharge Details Reason For Visit: CHEST PAIN RULE OUT,HYPOKALEMIA Admit Date/Time: 03/23/20 15:47 Admit Provider: Taye Moffett Attending Provider: Taye Moffett Primary Care Provider: Jud De La Paz [facility] Hospital Course: This is a 74 yo female with a PMH of HTN, HLD, Sari's thyroiditis, 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 She presented at the encouragement of her daughter after experiencing CP at 4 AM the morning of admission. She states that substernal CP that radiated to both sides of her neck and into her back woke her from sleep. She thought it might be reflux; took an antacid and Ibuprofen and it gradually decreased over time. Her pain was a 1/10 on arrival. She also too k 2 baby aspirin later. She describes the discomfort now as mid sternal and occuring with a deep breath or leaning forward. No palpitations. She did initially experience mild SOA with the pain. No F/C, cough/sputum, runny nose, body aches. In the ED a CTA chest was negative for pulmonary embolism or other acute findings. Incidentally noted were small nodular densities in the lung zhou as described above measuring up to 5 millimeters and requiring appropriate follow- up. also noted was a well-defined subcapsular 26 x 17 millimeter finding in the right hepatic lobe which is difficult to assess on this type of study. Possibly cyst. Recommend ultrasound follow-up. Troponin x2 negative in the ED. + low K and Mg; replacement initiated. Her chest pain was not reproducible with chest compression. Her chest pain resolved during the course of this observation stay. An echocardiogram was performed with the results pending at the time of d/c. Patient will be notified of the results when available. No medication changes made. Return if pain recurs. Discuss outpatient MPI stress testing with PCP. F/U with PCP in 1-2 weeks. Home Meds and New Rx's Prescriptions: New aspirin 81 mg Tablet,Chewable 81 mg CH DAILY Qty: 0 RF: 0 aspirin 81 mg Tablet,Chewable 81 mg CH NOW Qty: 0 RF: 0 Continued red yeast rice 600 mg capsule 600 mg PO DAILY RF: 0 [id number] Tablet See Rx Instructions PO DAILY RF: 0 CENTRUM SILVER TABLET 1 EACH tablet 1 ea PO DAILY RF: 0 cholecalciferol (vitamin D3) 1,000 UNIT capsule 1,000 unit PO DAILY RF: 0 hydrochlorothiazide 12.5 mg tablet 12.5 mg PO DAILY Qty: 90 RF: 12 verapamil 120 mg tablet extended release 120 mg PO DAILY Qty: 90 RF: 12 Discharge Instructions Instructions: Autoimmune Thyroid Disorders (DC) Stand Alone Forms: Nursing Discharge Form Referrals: Jud De La Paz MD, [place] [Primary Care Provider] - 04/05/20 8:00 am Activity:: Activity as Tolerated Equipment/Supplies:: No Equipment Needed Diet:: Low Sodium Discharge Orders Discharge Orders: Discharge Order (Routine); Ordered 03/24/20 Ordered By: Taye Moffett DS: Summary Status at Discharge Functional status at discharge: independent ambulation Overall status at discharge: patient is back to baseline Mental Status: mental status grossly normal Speech and Movement: speech and movement normal Mood: congruent mood Affect: normal affect Exam Psych Mental Status: mental status grossly normal Speech and Movement: speech and movement normal Mood: congruent mood Affect: normal affect DS: Data Vitals/I&O Vitals and I&O: Vital Signs Temperature 36.5 C 03/24/20 05:43 Temperature Source Tympanic 03/24/20 05:43 Pulse 87 03/24/20 07:37 Pulse Rhythm Regular 03/24/20 07:34 Pulse 84 03/23/20 15:20 Respiratory Rate 18 03/24/20 05:43 Respiratory Effort Non-Labored 03/24/20 07:34 Respiratory Depth Normal 03/24/20 07:34 Respiratory Pattern Normal 03/24/20 07:34 Blood Pressure 104/55 L 03/24/20 05:43 Blood Pressure Mean 75 03/23/20 15:19 Pulse Oximetry 96 03/24/20 05:43 Oxygen Delivery Method Room Air 03/24/20 05:43 Oxygen Flow Rate 0 03/24/20 05:43 Pain Level 0 03/24/20 07:34 Comment 03/24/20 07:34 Intake & Output 03/23/20 03/23/20 03/24/20 11:59 23:59 11:59 Intake Total 110 / 110 900 / 900 Output Total 650 / 650 250 / 250 Balance -540 / -540 650 / 650 Weight 74.1 kg 70.9 kg Intake: IV 110 / 110 10 / 10 Oral 890 / 890 Output: Urine 650 / 650 250 / 250 Other: Urine Color Light Jia Straw Urine Appearance Clear Clear Urine Odor Normal Normal Comment Void x1 in the toilet. Voiding Methods Toilet Toilet Data Completed and Pending Labs on day of discharge: Labs from last 24 hours 03/24/20 03/24/20 03/23/20 06:20 06:20 21:15 WBC RBC Hgb Hct MCV MCH MCHC RDW Plt Count MPV Immature Gran % Neutrophils % Lymphocytes % Monocytes % Eosinophils % Basophils % Nucleated RBC % Absolute Neutrophils Absolute Lymphocytes Absolute Monocytes Absolute Eosinophils Absolute Basophils Sodium 138 Potassium 3.5 Chloride 102 Carbon Dioxide 27.4 Anion Gap 8.6 BUN 10 Creatinine 0.82 Estimated GFR/1.73 m2 >= 60.00 Glucose 112 H Calcium 8.9 Magnesium 1.7 L Total Bilirubin AST ALT Alkaline Phosphatase Troponin I < 0.05 C-Reactive Protein 4.60 H Total Protein Albumin TSH SARS-CoV-2 (PCR) Nasopharyn COVID-19 PCR Ref Test Perform Site 03/23/20 03/23/20 03/23/20 21:15 16:24 16:00 WBC RBC Hgb Hct MCV MCH MCHC RDW Plt Count MPV Immature Gran % Neutrophils % Lymphocytes % Monocytes % Eosinophils % Basophils % Nucleated RBC % Absolute Neutrophils Absolute Lymphocytes Absolute Monocytes Absolute Eosinophils Absolute Basophils Sodium Potassium Chloride Carbon Dioxide Anion Gap BUN Creatinine Estimated GFR/1.73 m2 Glucose Calcium Magnesium Total Bilirubin AST ALT Alkaline Phosphatase Troponin I < 0.05 < 0.05 C-Reactive Protein Total Protein Albumin TSH SARS-CoV-2 (PCR) Negative Nasopharyn COVID-19 PCR Not Applicable [facility] Test [facility] 03/23/20 03/23/20 15:51 13:30 13:30 WBC 8.91 RBC 4.28 Hgb 15.5 Hct 44.8 MCV 104.7 H MCH 36.2 H MCHC 34.6 RDW 12.3 Plt Count 235 MPV 8.8 Immature Gran % 0.2 Neutrophils % 58.8 Lymphocytes % 29.3 Monocytes % 8.6 Eosinophils % 2.9 Basophils % 0.2 Nucleated RBC % 0 Absolute Neutrophils 5.23 Absolute Lymphocytes 2.61 Absolute Monocytes 0.77 Absolute Eosinophils 0.26 Absolute Basophils 0.02 Sodium 138 Potassium 2.9 L* Chloride 99 Carbon Dioxide 28.5 Anion Gap 10.5 BUN 8 Creatinine 0.73 Estimated GFR/1.73 m2 >= 60.00 Glucose 104 Calcium 9.5 Magnesium 1.7 L Total Bilirubin 0.5 AST 126 H ALT 187 H Alkaline Phosphatase 78 Troponin I < 0.05 C-Reactive Protein Total Protein 7.5 Albumin 3.9 TSH SARS-CoV-2 (PCR) Cancelled Nasopharyn COVID-19 PCR Cancelled Ref Test Perform Site Cancelled 03/23/20 13:30 WBC RBC Hgb Hct MCV MCH MCHC RDW Plt Count MPV Immature Gran % Neutrophils % Lymphocytes % Monocytes % Eosinophils % Basophils % Nucleated RBC % Absolute Neutrophils Absolute Lymphocytes Absolute Monocytes Absolute Eosinophils Absolute Basophils Sodium Potassium Chloride Carbon Dioxide Anion Gap BUN Creatinine Estimated GFR/1.73 m2 Glucose Calcium Magnesium Total Bilirubin AST ALT Alkaline Phosphatase Troponin I C-Reactive Protein Total Protein Albumin TSH 1.34 SARS-CoV-2 (PCR) Nasopharyn COVID-19 PCR Ref Test Perform Site [facility] Medical History Abnormal auditory perception (06/18/13) 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) Essential hypertension Sari's disease Hyperlipidemia Irritable colon (05/31/08) Labial lesion (12/15/14) Metatarsal bone fracture (05/31/08) Mild intermittent asthma (03/08/17) Osteopenia (05/31/08) Personal history of cervical dysplasia (07/05/11) CIS 1992 w/ Laser cone BX HSIL LES 1997 w/ excisional cone BX-treated in [place] at [facility] exposure to MOHSEN Polyp of colon 10/14/06 TUBULAR ADENOMA 01/10/11 TA on three year recall for colonoscopy tubular adenoma, 08/07/16, dr go Seasonal allergic rhinitis Smoker (05/31/08) Thyroid mass (~11/13/18) 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 2 aunts Breast cancer Father , age 42 Alcohol abuse Brother Essential hypertension Hyperlipidemia Maternal Grandfather , age 72 No problems noted. Paternal Grandfather No problems noted. Maternal Grandmother , age 93 Essential hypertension Paternal Grandmother No problems noted. Sister No problems noted. Daughter No problems noted. Social History Smoking/Tobacco Use Status: Former Tobacco Use Quit Date: 04/08/84 Tobacco: How many years used: 20 Smoking risk assessment performed?: Yes Alcohol Intake: current Alcohol Intake frequency: 3 or more drinks per day Alcohol type: wine Drug use: Never Caregiver/Support person: No Housing: house Communication Needs: None Do you need help understanding health information?: Rarely Pets and animals: No Sexually active: Yes Do you think of yourself as: straight/heterosexual Current gender identity: female What is your relationship status?: How often do you talk on the phone with friends or family?: three or more times per week How often do you get together with friends or relatives?: once per week How often do you attend alevism or amish services?: decline to answer Do you belong to any clubs or organized social groups?: no Panel score (0-1 are the most socially isolated patients): 1 What type of physical activity do you participate in: decline to answer Duration: decline to answer Frequency: decline to answer Zakiya/Hinduism: None Special zakiya needs: No Seatbelt use: always Helmet use: Yes Helmet use: always Drive intox or ride w/intox courtesy van driver: No Do you feel safe at home: Yes Do you feel safe in your relationship?: Yes
[2020-03-24] MEDS: Aspirin 81 MG CHEW CH (10:28)
[2020-03-24 10:45] VITALS: PULSE 77
--- NOTE | 2020-03-24 14:52 | PDOC.CMDIS ---
- If Service Date Differs Date of service: 03/24/20 Time of Service: 14:52 LACE Index Scoring Tool - Questions: Length of Stay (in days): 1 Acuity (Admit via E.D.?): Yes E.D. Visits: 1 - Answers: Total Score: 5 Risk of Readmission: Low Risk Care Management Discharge Reason for Hospitalization: chest pain Discharge Plan: Pipe will be discharged hgome with no new services. She will follow up with her PCP and discharge plan of care and transport with friends/family. Patient/Family Education Needs: Discharge plan, limitations, follow up plan, Ask Me Three
== END 2020-03-24 11:16 | disposition home or self-care (01) ==
LOC: ER 15:49 → MS 16:34
PROVIDERS: Admitting Provider Family Medicine; Emergency Provider Registered Nurse Emergency; PCP Family Medicine; Visit Provider Family Medicine
DX: R07.9 Chest pain, unspecified (principal); E06.3 Autoimmune thyroiditis; E03.9 Hypothyroidism, unspecified; I10 Essential (primary) hypertension; E78.5 Hyperlipidemia, unspecified; Z79.899 Other long term (current) drug therapy; E87.6 Hypokalemia; E83.42 Hypomagnesemia; R93.2 Abnormal findings on diagnostic imaging of liver and biliary tract; J45.20 Mild intermittent asthma, uncomplicated
CPT/HCPCS: 36415; 71275; 80048; 80053; 93005; 93306; 96365; 99217; 99219; 99285; U0003; 83735; 84443; 84484; 85025; 86140; 93010; 99235; G0378; J3475; J3490

== ENCOUNTER 2020-06-21 02:49 | Outpatient (CLI) | payer MEDICARE, SELFPAY ==
[2020-06-21 10:57] LABS: ALT 202 U/L (14-59); AST 147 U/L (15-37); Albumin 4.3 g/dL (3.4-5.0); Alkaline Phosphatase 90 U/L (46-116); Anion Gap 14.7 mmol/L (3-11); BUN 9 mg/dL (7-18); Bilirubin, Total 0.6 mg/dL (0.2-1.0); CO2 27.3 mmol/L (21.0-32.0); CREATININE 0.8 mg/dL (0.55-1.02); Calcium 10.1 mg/dL (8.5-10.1); Chloride 101 mmol/L (98-107); Glucose 105 mg/dL (74-106); Potassium 3.9 mmol/L (3.5-5.1); Sodium 143 mmol/L (136-145); TSH (W/Ref FT4) 2.08 uIU/mL (0.36-3.74); Total Protein 7.5 g/dL (6.4-8.2)
[2020-06-23 14:25] LABS: GGT 249 U/L (5-55)
[2020-06-24 08:25] LABS: AFP Tumor Marker 8.7 ng/mL (<8.1)
== END 2020-06-21 02:50 | disposition home or self-care (01) ==
PROVIDERS: PCP Family Medicine; Visit Provider Family Medicine
DX: I10 Essential (primary) hypertension (principal); E03.9 Hypothyroidism, unspecified
CPT/HCPCS: 36415; 80053; 82105; 82977; 84443

== ENCOUNTER 2020-06-24 02:42 | Outpatient (CLI) | payer MEDICARE, SELFPAY ==
[2020-06-27 12:32] LABS: Hepatitis A Antibody IgM Negative (Negative); Hepatitis B Core Antibody Negative (Negative); Hepatitis B surface Ag Negative (Negative); Hepatitis C Ab w Rflx HCV PCR Negative (Negative)
== END 2020-06-24 02:43 | disposition home or self-care (01) ==
LOC: LBO 02:42
PROVIDERS: PCP Family Medicine; Visit Provider Family Medicine
DX: R79.89 Other specified abnormal findings of blood chemistry (principal); Z11.59 Encounter for screening for other viral diseases
CPT/HCPCS: 36415; 86704; 86709; 86803; 87340

== ENCOUNTER 2020-07-05 02:02 | Outpatient (CLI) | payer MEDICARE, SELFPAY ==
--- NOTE | 2020-07-05 07:00 | DI.US_ITS ---
EXAM: US ABDOMEN CLINICAL HISTORY: elevated LFT,R79.89 TECHNIQUE: Ultrasound abdomen performed using standard protocol. COMPARISON: CT CT CHEST PE CTA from 03/23/[address] CHEST PE CTA from 03/23/2020 FINDINGS: LIVER: Normal in size a 13.2 cm in length. Moderately increased diffuse liver echogenicity consisten t with mild to moderate fatty infiltration. 2.6 centimeter cyst superiorly and anteriorly in the rig ht. This was noted on previous CT. Two others tiny cysts are seen in the right lobe measuring near 1 cm in size. GALLBLADDER: No evidence of cholelithiasis. No evidence of wall thickening. No pericholecystic fluid identified. CHU'S SIGN: Negative. BILIARY SYSTEM: No intrahepatic or extrahepatic biliary ductal dilation. KIDNEYS: Kidneys are symmetric in size. No evidence of renal calculi. No evidence of hydronephrosis. 14 millimeter parapelvic cyst mid to lower pole right kidney. 8 millimeters cyst near the upper pole of the left kidney. PANCREAS: Normal where visualized. SPLEEN: Not enlarged. ABDOMINAL AORTA AND IVC: Visualized portions normal caliber. ASCITES: None seen. IMPRESSION: Liver cysts. Mild to moderate hepatic steatosis. DATA REPOSITORY:
== END 2020-07-05 02:22 ==
PROVIDERS: PCP Family Medicine; Visit Provider Family Medicine
DX: K76.0 Fatty (change of) liver, not elsewhere classified (principal); K76.89 Other specified diseases of liver; R79.89 Other specified abnormal findings of blood chemistry
CPT/HCPCS: 76700

== ENCOUNTER 2021-01-23 11:20 | Outpatient (REF) | payer MEDICARE, SELFPAY ==
--- NOTE | 2021-01-23 10:15 | PAPFT_PTH ---
PATIENT: Pipe Love LOC: [facility] U#:[id number] AGE/SX: 75/F ROOM: RE01/23/[address]: CARMINE Giron : 1945 BED: DIS: 01/23/2021 SPEC #: [id number] RECD: 01/23/21 11:29 STATUS: SVEN REQ #: [id number] ADIN: 01/23/21 10:[address]: Salome Garcia [facility] Cytology RECD BY: Isaura Thompson ENTERED: 01/23/21 11:30 SP TYPE: PAPFT OTHR DR: Jud De La Paz MD, [place] Tissues: 1 - CX/ENDOCX FOR PAP SMEARS Procedures: PAP THIN PREP/UVM Screening HPV DNA PROBE Comments: [id number]
== END 2021-01-23 11:21 | disposition home or self-care (01) ==
LOC: LBN 11:20
PROVIDERS: PCP Family Medicine; Visit Provider Nurse Practitioner Family
DX: Z12.4 Encounter for screening for malignant neoplasm of cervix (principal); Z11.51 Encounter for screening for human papillomavirus (HPV); Z01.419 Encounter for gynecological examination (general) (routine) without abnormal findings
CPT/HCPCS: 88142; 87624

== ENCOUNTER 2021-02-20 01:51 | Outpatient (CLI) | payer MEDICARE, SELFPAY ==
--- NOTE | 2021-02-20 | DI.MAMMO_ITS ---
Exam(s) MAMMO SCREENING EXAM: MAMMO SCREENING CLINICAL HISTORY: SCREENING, Z12.39. TECHNIQUE: Bilateral full field digital CC and MLO mammographic images were obtained with 3D tomosyn thesis and utilizing computer aided detection (CAD). COMPARISON: Prior mammograms dating back to 2011, the most recent being August 2019. FINDINGS: The fibroglandular pattern is again noted be moderately dense, this somewhat decreasing the sensitivi ty of the mammogram for finding hidden underlying lesions. No new significant radiograph findings in left breast In the right breast on 3D CC imaging there is a 6 x 6 millimeter nodular infiltrate located 3.5 cm i n from the nipple, slightly lateral of center, and more evident than on prior studies. There are no malignant-appearing microcalcification groups in this region or elsewhere in either breast There is no significant architectural distortion nor skin thickening-retraction. IMPRESSION: Moderately dense fibroglandular tissue. No radiographic evidence of malignancy in left breast. In t he right breast there is subtle suggestion of possible nodule seen on 3D cc imaging. Compression vie w and ultrasound recommended BI-RADS Category 0 - Assessment Incomplete: Need additional imaging evaluation Breast Density - Category C - Heterogeneously dense Breast density Category C or D implies that the patient has dense breast tissue. Dense breast tissue can make it harder to find cancer on a mammogram. Dense breast tissue is also associated with an incr eased risk of breast cancer. This information about the result of the mammogram report was provided to the patient to raise their awareness. Use this report when you speak with the patient about their risks for breast cancer, which includes their family history. At that time, you may recommend additional screening tests (Ultrasoun d or MRI) as these tests may add significant information. A negative radiographic report should not delay biopsy if a dominant or clinically suspicious mass is present. Up to ten percent of cancers are not identified on mammography. A negative report may reinforce clinical impression. Adenosis and dense breasts may obscure an underlying neoplasm. False positive reports average 6 to 10%. Patient will receive a letter notifying them of these results.
== END 2021-02-20 02:11 ==
PROVIDERS: PCP Family Medicine; Visit Provider Nurse Practitioner Family
DX: Z12.31 Encounter for screening mammogram for malignant neoplasm of breast (principal); R92.8 Other abnormal and inconclusive findings on diagnostic imaging of breast
CPT/HCPCS: 77063; 77067

== ENCOUNTER 2021-02-23 01:10 | Outpatient (CLI) | payer MEDICARE, SELFPAY ==
--- NOTE | 2021-02-23 10:00 | DI.MAMMO_ITS ---
Exam(s) MG MAMMO SCREEN CALL BACK UNI EXAM: MG MAMMO SCREEN CALL BACK UNI RIGHT CLINICAL HISTORY: POSSIBLE NODULE RT BREAST. TECHNIQUE: Unilateral spot mammographic images obtained with 3D tomosynthesisand utilizing computer aided detection (CAD). . COMPARISON: Prior mammograms were reviewed. This additional imaging was performed due to findings described on the recent screening mammogram of 02/20/2021. FINDINGS: Additional mammographic views performed todaydo not dissipate this finding. There appears to be a sl ightly lobulated nodule at this location slightly lateral of center.Breast ultrasound will be perform ed. Ultrasound performed today reveals findings at the 8 o'clock and 10 o'clock positions of the right br east which will require repeat imaging in 3 months time, this to include repeat right breast mammogra m and right breast ultrasound. IMPRESSION: As above. Recommend repeat right breast imaging in 3 months time, this to include repeat right breas t mammogram and ultrasound Findings are recommendations were discussed by myself with the patient today. The patient was informed of these findings and recommendations prior to leaving the department today. BI-RADS Category 3 - 3 month - Probably Benign Finding: Recommend follow-up mammography in 3 months Breast Density - Category C - Heterogeneously dense Breast density Category C or D implies that the patient has dense breast tissue. Dense breast tissue can make it harder to find cancer on a mammogram. Dense breast tissue is also associated with an incr eased risk of breast cancer. This information about the result of the mammogram report was provided to the patient to raise their awareness. Use this report when you speak with the patient about their risks for breast cancer, which includes their family history. At that time, you may recommend additional screening tests (Ultrasoun d or MRI) as these tests may add significant information. A negative radiographic report should not delay biopsy if a dominant or clinically suspicious mass is present. Up to ten percent of cancers are not identified on mammography. A negative report may reinforce clinical impression. Adenosis and dense breasts may obscure an underlying neoplasm. False positive reports average 6 to 10%. Patient will receive a letter notifying them of these results.
--- NOTE | 2021-02-23 10:30 | DI.US_ITS ---
Exam(s) US BREAST RT COMPLETE EXAM: US BREAST RT COMPLETE CLINICAL HISTORY: POSSIBLE NODULE RT BREAST. TECHNIQUE: Complete ultrasound of the right breast was performed including all 4 quadrants, the retr oareolar region, and the ipsilateral axilla. COMPARISON: Prior mammograms were reviewed. Today's spot compression view was also reviewed FINDINGS: At the 8 o'clock position there is a 5 x 2 millimeter finding which is probably hemorrhagic microcyst . This may possibly correspond to the finding on the mammogram. At the 10 o'clock position there is a lobulated 10 by 3 millimeter nodular density which is possibly a fibroadenoma or other pathology. Exhibits neutral through transmission. This may correspond to fi nding on mammogram. IMPRESSION: As above. Appropriate follow-up, as discussed by myself with the patient today, is repeat right paige st imaging in 3 months time, this to include repeat right breast mammogram and ultrasound. . BI-RADS Category 3 - 3 month - Probably Benign Finding: Recommend follow-up mammography in 3 months Breast Density - Category C - Heterogeneously dense Breast density Category C or D implies that the patient has dense breast tissue. Dense breast tissue can make it harder to find cancer on a mammogram. Dense breast tissue is also associated with an incr eased risk of breast cancer. This information about the result of the mammogram report was provided to the patient to raise their awareness. Use this report when you speak with the patient about their risks for breast cancer, which includes their family history. At that time, you may recommend additional screening tests (Ultrasoun d or MRI) as these tests may add significant information. A negative radiographic report should not delay biopsy if a dominant or clinically suspicious mass is present. Up to ten percent of cancers are not identified on mammography. A negative report may reinforce clinical impression. Adenosis and dense breasts may obscure an underlying neoplasm. False positive reports average 6 to 10%. Patient will receive a letter notifying them of these results.
== END 2021-02-23 01:30 ==
PROVIDERS: PCP Family Medicine; Visit Provider Nurse Practitioner Family
DX: Z12.31 Encounter for screening mammogram for malignant neoplasm of breast (principal); R92.8 Other abnormal and inconclusive findings on diagnostic imaging of breast; N60.81 Other benign mammary dysplasias of right breast; N60.01 Solitary cyst of right breast
CPT/HCPCS: 76642; 77063; 77067

== ENCOUNTER 2021-05-19 01:05 | Outpatient (CLI) | payer MEDICARE, SELFPAY ==
--- NOTE | 2021-05-19 06:45 | DI.MAMMO_ITS ---
Exam(s) MG MAMMO DIAGNOSTIC UNI US BREAST RT LIMITED EXAM: MG MAMMO DIAGNOSTIC UNI and U/S breast RT limited CLINICAL HISTORY: 3 mo f/u,r92.8. TECHNIQUE: Craniocaudal and mediolateral oblique Full Field Digital Mammography views of the right b reast with Computer Aided Diagnosis followed by Tomosynthesis and right breast ultrasound. COMPARISON: Comparison is made with prior examinations. FINDINGS: Mammography/Tomosynthesis: Masses/Architectural Distortion: None seen. Microcalcifictions: No suspicious pleomorphic-type are seen. Skin Thickening/Nipple Retraction: None. Limited right breast US: Echotexture: Normal appearance of the glandular tissue. Shadowing: No suspicious foci. Cyst: None. Solid lesions: The solid hypoechoic areas at the 8 o'clock position of the right breast 2 cm from the nipple in the 11 o'clock position of the right breast 1 cm from the nipple are unchanged. Ductal dilation: None. IMPRESSION: 1. No evidence of malignancy is noted. 2. A six-month follow-up right mammogram and ultrasound are recommended for re-evaluation. 3. The findings were discussed with the patient on the date of the examination. BI-RADS Category 3 - 6 month - Probably Benign Finding: Recommend follow-up imaging in 6 months Breast Density - Category C - Heterogeneously dense Breast density Category C or D implies that the patient has dense breast tissue. Dense breast tissue can make it harder to find cancer on a mammogram. Dense breast tissue is also associated with an incr eased risk of breast cancer. This information about the result of the mammogram report was provided to the patient to raise their awareness. Use this report when you speak with the patient about their risks for breast cancer, which includes their family history. At that time, you may recommend additional screening tests (Ultrasoun d or MRI) as these tests may add significant information. A negative radiographic report should not delay biopsy if a dominant or clinically suspicious mass is present. Up to ten percent of cancers are not identified on mammography. A negative report may reinforce clinical impression. Adenosis and dense breasts may obscure an underlying neoplasm. False positive reports average 6 to 10%. Patient will receive a letter notifying them of these results.
== END 2021-05-19 01:25 ==
PROVIDERS: PCP Family Medicine; Visit Provider Nurse Practitioner Family
DX: R92.8 Other abnormal and inconclusive findings on diagnostic imaging of breast (principal); N60.81 Other benign mammary dysplasias of right breast
CPT/HCPCS: 76642; 77061; 77065; G0279

== ENCOUNTER 2021-08-23 18:38 | Emergency (ER) | payer OTHER, SELFPAY ==
[2021-08-23 18:44] VITALS: BP 152/68; PULSE 91; RESP 16; TEMP 36.2; O2SAT 95
--- NOTE | 2021-08-23 19:59 | W.ED.GENAD ---
Discharge Plan Disposition Patient Disposition: HOME Condition: Improving Discharge Details Chief Complaint: Abd Prob Clinical Impression: Bleeding from wound Primary Care Provider: Jud De La Paz ED Provider: Taye Bonilla Home Meds and New Rx's Prescriptions: No Action red yeast rice 600 mg capsule 600 mg PO DAILY [id number] Tablet See Rx Instructions PO DAILY Rx Instructions: [id number] PO daily; hydrochlorothiazide 12.5 mg tablet 12.5 mg PO DAILY Qty: 90 12RF verapamil 120 mg tablet extended release 120 mg PO DAILY Qty: 90 12RF clindamycin HCl 300 mg capsule 450 mg PO TID Qty: 31.5 0RF Bio-K plus 50 billion cell capsule,delayed release(DR/EC) 1 cap PO DAILY Qty: 30 0RF CENTRUM SILVER TABLET 1 EACH tablet 1 ea PO DAILY cholecalciferol (vitamin D3) 1,000 UNIT capsule 1,000 unit PO DAILY potassium chloride 20 mEq tablet extended release 20 meq PO DAILY Qty: 90 5RF albuterol sulfate 90 mcg/actuation HFA aerosol inhaler 2 puff inhalation Q8H Qty: 8.5 4RF Rx Instructions: provide a spacer also Discharge Instructions Additional Instructions: Please return to the emergency department in 2 days if you are unable to see your primary care physician within that amount of time. You will need to have your packing removed. Please return sooner if you develop signs of infection such as pus drainage fevers chills spreading redness or if you have uncontrolled bleeding. Take your medications as prescribed. Medical Decision Making 75-year-old female presents with bleeding wound had cystic structures removed from right groin at [facility] [place] in [place] earlier this afternoon, nurse practitioner provider performed large incision packed wound after removing with sounds like a significant amount of material from subcutaneous soft tissue. Patient was soaking through a pad on arrival, currently no bleeding. Packing in place. 1 suture at either end of wound. Patient was initially told by nurse practitioner that this was a Bartholin gland cyst however the incision is in inguinal crease near gluteus and vulva nowhere near her labia, was then told that it might have been an ingrown hair with cystic structure, patient was instructed to remove her own packing in 1 week if it does not fall out on its own. It is unclear what the indication for this procedure was at the bedside I attempted to call the urgent care however they are closed. The provider performed the procedure was CHERELLE Munoz. I instructed patient that she needs to follow-up with her primary care physician tomorrow or the next day or return to the emergency department within 2 days for wound check and she will need to have her packing removed for risk of infection. Patient is on empiric antibiotics. Hemodynamically stable HPI General Date/Time Provider Initiated Documentation: 08/23/21 19:09. HPI Narrative: 75-year-old female presents after recent bedside procedure at [facility] in [place] where she had cyst removed from her groin. Patient noted a quarter size localized mobile swelling in her right groin last night, nurse practitioner provider anesthetize site at bedside made an incision and pulled multiple cystic structures from the groin region, packed the wound left the wound open until patient that the packing would fall out eventually on its own and that if it did not to pull it out on her own in 1 week also instructed the patient to follow-up with her primary care doctor. Patient was placed on antibiotics. Patient presents to the emergency department today for persistent bloody oozing from wound. Denies fevers chills or purulent drainage. Related Data Home Medications Medication Instructions Recorded Confirmed Centrum Silver Tablet 1 ea PO DAILY 08/26/12 08/23/21 cholecalciferol (vitamin D3) 25 1,000 unit PO DAILY 10/29/17 08/23/21 mcg (1,000 unit) capsule red yeast rice 600 mg capsule 600 mg PO DAILY 06/17/18 08/23/21 razixdy-cpzgfwlle-unft tablet See Rx Instructions PO DAILY 06/23/19 08/23/21 potassium chloride 20 mEq 20 meq PO DAILY #90 tabs 05/10/20 08/23/21 tablet,extended release hydrochlorothiazide 12.5 mg tablet 12.5 mg PO DAILY #90 tabs 07/12/20 08/23/21 verapamil 120 mg tablet,extended 120 mg PO DAILY #90 tab-caps 07/12/20 08/23/21 release albuterol sulfate 90 mcg/actuation 2 puff inhalation Q8H #8.5 grams 06/15/21 08/23/21 aerosol inhaler L. acidophilus,casei,rhamnosus 50 1 cap PO DAILY #30 caps 08/23/21 08/23/21 billion cell capsule,delayed release (Bio-K plus) clindamycin HCl 300 mg capsule 450 mg PO TID #31.5 caps 08/23/21 08/23/21 Previous Rx's Medication Instructions Recorded potassium chloride 20 mEq 20 meq PO DAILY #90 tabs 05/10/20 tablet,extended release hydrochlorothiazide 12.5 mg tablet 12.5 mg PO DAILY #90 tabs 07/12/20 verapamil 120 mg tablet,extended 120 mg PO DAILY #90 tab-caps 07/12/20 release albuterol sulfate 90 mcg/actuation 2 puff inhalation Q8H #8.5 grams 06/15/21 aerosol inhaler L. acidophilus,casei,rhamnosus 50 1 cap PO DAILY #30 caps 08/23/21 billion cell capsule,delayed release (Bio-K plus) clindamycin HCl 300 mg capsule 450 mg PO TID #31.5 caps 08/23/21 Allergies Allergy/AdvReac Type Severity Reaction Status Date / Time zoster vaccine live Allergy Intermediate Arm red Verified 08/23/21 18:47 and swollen 10/17/12 Sulfa (Sulfonamide AdvReac Severe Bloody Unverified 08/23/21 18:47 Antibiotics) diarrhea ciprofloxacin [From Cipro] AdvReac Intermediate BLOODY Unverified 08/23/21 18:47 DIARRHEA bug spray Allergy Intermediate asthma Uncoded 08/23/21 18:47 General Stated Complaint: Abd Prob BRYCE: 3 Review of Systems Narrative: Review of Systems Constitutional: negative Eyes: negative ENT: negative Cardiovascular: negative Respiratory: negative Gastrointestinal: negative : negative Musculoskeletal: negative Skin: Bleeding wound, groin Neurologic: negative Psych: negative PFSH All Active Problems (Updated 08/23/21 @ 20:07 by Taye Bonilla MD) Bleeding from wound (Acute) Abscess of Bartholin's gland (Acute) Colon polyps (Acute) Elevated liver function tests (Acute) Acute hypokalemia (Acute) Chest pain (Acute) Hypothyroidism (Chronic) Thyroid mass (Acute ~11/13/18) Sari's disease (Acute) Cervical pain (neck) (Acute) Multiple joint pain (Acute 08/26/12) Status post tonsillectomy (Acute) 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;[facility] BX; ALEX II-III Seasonal allergic rhinitis (Chronic) Polyp of colon (Chronic) 10/14/06 TUBULAR ADENOMA 01/10/11 TA on three year recall for colonoscopy tubular adenoma, 08/07/16, dr go Personal history of cervical dysplasia (Chronic 07/05/11) CIS 1992 w/ Laser cone BX HSIL LES 1997 w/ excisional cone BX-treated in [place] at [facility] exposure to MOHSEN Osteopenia (Chronic 05/31/08) Mild intermittent asthma (Chronic 03/08/17) Labial lesion (Chronic 12/15/14) Hyperlipidemia (Chronic) Essential hypertension (Chronic) 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 2 aunts Breast cancer Father , age 42 Alcohol abuse Brother Essential hypertension Hyperlipidemia Maternal Grandfather , age 72 No problems noted. Paternal Grandfather No problems noted. Maternal Grandmother , age 93 Essential hypertension Paternal Grandmother No problems noted. Sister No problems noted. Daughter No problems noted. Social History Smoking/Tobacco Use Status: Former Tobacco Use tobacco type: cigarettes Quit Date: 04/08/84 Tobacco: How many years used: 30 Second Hand Exposure: Yes Smoking risk assessment performed?: Yes Alcohol Intake: current Alcohol Intake frequency: 0-2 drinks per day Alcohol type: wine Drug use: Never Substance use type: does not use Caregiver/Support person: No Household members: none Communication Needs: Corrective Lenses Do you need help understanding health information?: Rarely Pets and animals: No Sexually active: Yes Do you think of yourself as: straight/heterosexual Current gender identity: female What is your relationship status?: How often do you talk on the phone with friends or family?: three or more times per week How often do you get together with friends or relatives?: twice per week Panel score (0-1 are the most socially isolated patients): 1 What type of physical activity do you participate in: other Details: Roadtender and decline to answer Duration: decline to answer Frequency: decline to answer Zakiya/Roman Catholic: None Special zakiya needs: No Seatbelt use: always Helmet use: Yes Helmet use: always Drive intox or ride w/intox inventory associate and driver: No Do you feel safe at home: Yes Do you feel safe in your relationship?: Yes Exam Narrative Exam Narrative: Physical Examination General: alert, awake, cooperative, resting comfortably, no acute distress HEENT: normocephalic, atraumatic; PERRL, EOM intact, conjunctiva normal; no nasal discharge; moist mucous membranes, oral and pharyngeal mucosa normal, tolerating secretions Neck: supple, trachea midline; full ROM Chest: normal to inspection Respiratory: normal respiratory effort, speaking in full sentences, clear to auscultation, no wheezing, rales or rhonchi Cardiac: regular rate, regular rhythm, S1S2 intact, no murmurs rubs or gallops GI: abdomen soft, non-tender, non-distended; no palpable mass or hepatosplenomegaly Skin: Right groin between vulva and gluteal fold, large gaping incision approximately 5 to 7 cm in length, packing in place evidence of recent venous oozing however no current bleeding 1 simple interrupted suture at either end of incision Neuro: AAOx3, normal speech, moving all extremities Psych: Appropriate mood and affect Course Vital Signs Vital signs: Vital Signs Temperature 36.2 C L 08/23/21 18:44 Pulse 91 H 08/23/21 18:44 Respiratory Rate 16 08/23/21 18:44 Blood Pressure 152/68 H 08/23/21 18:44 Pulse Oximetry 95 08/23/21 18:44 Temperature 36.2 C L 08/23/21 18:44 Temperature Source Temporal Artery Scan 08/23/21 18:44 Pulse 91 H 08/23/21 18:44 Respiratory Rate 16 08/23/21 18:44 Respiratory Effort 08/23/21 18:44 Blood Pressure 152/68 H 08/23/21 18:44 Blood Pressure Position Sitting 08/23/21 18:44 Pulse Oximetry 95 08/23/21 18:44 Oxygen Delivery Method Room Air 08/23/21 18:44 Oxygen Flow Rate 0 08/23/21 18:44 Pain Level 0 08/23/21 19:48
== END 2021-08-23 20:13 | disposition home or self-care (01) ==
PROVIDERS: Emergency Provider Emergency Medicine; PCP Family Medicine
DX: L76.21 Postprocedural hemorrhage of skin and subcutaneous tissue following a dermatologic procedure (principal)
CPT/HCPCS: 99281; 99282

== ENCOUNTER 2021-08-24 15:05 | Outpatient (REF) | payer MEDICARE, SELFPAY | END 2021-08-24 15:06 | disposition home or self-care (01) | LOC: LBN 15:05 | PROVIDERS: PCP Family Medicine; Visit Provider Physical Therapy Assistant | DX: N75.0 Cyst of Bartholin's gland; Z98.890 Other specified postprocedural states; L53.8 Other specified erythematous conditions | CPT/HCPCS: 87077; 87070 ==

== ENCOUNTER 2021-09-13 03:47 | Outpatient (CLI) | payer OTHER, SELFPAY ==
[2021-09-13 10:47] LABS: Abs Immature Grans 0.01 10^3/uL (0.0-0.06); Absolute Basophil Count 0.03 10^3/uL (0.0-0.2); Absolute Eosinophil Count 0.23 10^3/uL (0.0-0.7); Absolute Lymphocyte Count 1.77 10^3/uL (1.2-3.4); Absolute Monocyte Count 0.58 10^3/uL (0.1-0.8); Absolute Neutrophil Count 3.29 10^3/uL (1.2-6.7); Basophils % 0.5; Eosinophils % 3.9; HCT 43.8 % (36.0-46.0); HGB 15.2 g/dL (11.2-15.7); Immature Grans % 0.2; Lymphocytes % 29.9; MCH 35.1 pg (27.0-33.0); MCHC 34.7 % (32.0-36.0); MCV 101 fL (80-95); Monocytes % 9.8; Neutrophils % 55.7; Platelet Count 244 10^3/uL (130-400); RBC 4.33 10^6/uL (3.93-5.22); RDW-SD 48.9 fL; WBC 5.91 10^3/uL (4.4-10.8)
[2021-09-13 11:22] LABS: Hemoglobin A1C 5.1 % (<5.7)
[2021-09-13 11:31] LABS: C-Reactive Protein 0.28 mg/dL (0.0-0.3); GGT 157 U/L (5-55)
[2021-09-13 11:38] LABS: ALT 170 U/L (14-59); AST 163 U/L (15-37); Alkaline Phosphatase 85 U/L (46-116); Anion Gap 12.2 mmol/L (3-11); BUN 9 mg/dL (7-18); Bilirubin, Direct 0.2 mg/dL (0.0-0.2); Bilirubin, Total 0.9 mg/dL (0.2-1.0); CO2 26.8 mmol/L (21.0-32.0); CREATININE 0.9 mg/dL (0.55-1.02); Calcium 9.6 mg/dL (8.5-10.1); Chloride 100 mmol/L (98-107); Glucose 100 mg/dL (74-106); Potassium 3.8 mmol/L (3.5-5.1); Sodium 139 mmol/L (136-145); Total Protein 7.7 g/dL (6.4-8.2)
[2021-09-14 08:49] LABS: Lab Add On Test DONE
[2021-09-14 09:04] LABS: GGT 155 U/L (5-55)
[2021-09-15 08:39] LABS: AFP Tumor Marker 5.6 ng/mL (<8.1)
== END 2021-09-13 03:48 | disposition home or self-care (01) ==
LOC: LBO 03:48
PROVIDERS: PCP Family Medicine; Visit Provider Surgery
DX: I10 Essential (primary) hypertension (principal); D62 Acute posthemorrhagic anemia; E06.3 Autoimmune thyroiditis; E78.5 Hyperlipidemia, unspecified; K75.81 Nonalcoholic steatohepatitis (NASH); M79.89 Other specified soft tissue disorders; M85.80 Other specified disorders of bone density and structure, unspecified site; N90.1 Moderate vulvar dysplasia; N90.89 Other specified noninflammatory disorders of vulva and perineum; R77.2 Abnormality of alphafetoprotein; R79.89 Other specified abnormal findings of blood chemistry; S31.109A Unspecified open wound of abdominal wall, unspecified quadrant without penetration into peritoneal cavity, initial encounter; Z87.410 Personal history of cervical dysplasia; Z87.891 Personal history of nicotine dependence; Z90.721 Acquired absence of ovaries, unilateral; Z91.89 Other specified personal risk factors, not elsewhere classified
CPT/HCPCS: 36415; 80053; 82105; 82248; 82977; 83036; 84443; 85025; 86140

== ENCOUNTER 2021-10-16 11:44 | Outpatient (REF) | payer OTHER, SELFPAY ==
[2021-10-17 09:55] LABS: C Diff PCR Positive (Negative)
[2021-10-17 23:05] LABS: Campylobacter PCR Negative (Negative); Salmonella PCR Negative (Negative); Shiga Toxin PCR Negative (Negative); Shigella/Enteroinvasive Ecoli Negative (Negative)
== END 2021-10-16 11:45 | disposition home or self-care (01) ==
LOC: LBN 11:44
PROVIDERS: PCP Family Medicine; Visit Provider Family Medicine
DX: R19.7 Diarrhea, unspecified (principal)
CPT/HCPCS: 87329; 87505

== ENCOUNTER 2021-10-17 03:04 | Outpatient (CLI) | payer OTHER, SELFPAY ==
[2021-10-17 08:46] LABS: Abs Immature Grans 0.02 10^3/uL (0.0-0.06); Absolute Basophil Count 0.03 10^3/uL (0.0-0.2); Absolute Eosinophil Count 0.14 10^3/uL (0.0-0.7); Absolute Lymphocyte Count 2.18 10^3/uL (1.2-3.4); Absolute Monocyte Count 0.83 10^3/uL (0.1-0.8); Basophils % 0.6; Eosinophils % 2.7; HCT 43.9 % (36.0-46.0); HGB 15.8 g/dL (11.2-15.7); Immature Grans % 0.4; Lymphocytes % 41.9; MCH 35.4 pg (27.0-33.0); MCV 98 fL (80-95); Neutrophils % 38.4; Platelet Count 353 10^3/uL (130-400); RBC 4.46 10^6/uL (3.93-5.22); RDW 12.5 % (11.7-14.6); RDW-SD 45.4 fL
[2021-10-17 08:48] LABS: Bilirubin Negative (Negative); Blood Trace-intact (Negative); Clarity Clear (Clear); Glucose Negative (Negative); Ketones Negative (Negative); Leukocyte Esterase Negative (Negative); Nitrite Negative (Negative); Specific Gravity 1.015 (1.005-1.025); Urobilinogen 0.2 EU/dL (Up TO 0.2)
[2021-10-17 08:54] LABS: Bacteria Rare HPF (Negative); C & S Indicated? No; Casts Negative LPF (Negative); Crystals Negative HPF (Negative); Epithelial Cells Moderate HPF (Negative); Mucus Trace (Negative); WBC 0-2 HPF (0-5)
[2021-10-17 09:29] LABS: Calculated LDL 144 mg/dL (<100); Cholesterol 244 mg/dL (<200); HDL Cholesterol 72 mg/dL (40-60); Magnesium 1.9 mg/dL (1.8-2.4); Triglyceride 144 mg/dL (<150)
[2021-10-17 09:37] LABS: ALT 98 U/L (14-59); AST 68 U/L (15-37); Albumin 3.5 g/dL (3.4-5.0); Alkaline Phosphatase 76 U/L (46-116); Anion Gap 11.3 mmol/L (3-11); BUN 7 mg/dL (7-18); Bilirubin, Total 0.7 mg/dL (0.2-1.0); CO2 31.7 mmol/L (21.0-32.0); CREATININE 0.8 mg/dL (0.55-1.02); Calcium 9.5 mg/dL (8.5-10.1); Chloride 98 mmol/L (98-107); GGT 112 U/L (5-55); Glucose 111 mg/dL (74-106); Lipase 244 U/L (73-393); Sodium 141 mmol/L (136-145); Total Protein 7.2 g/dL (6.4-8.2)
[2021-10-17 09:44] LABS: Potassium 2.5 mmol/L (3.5-5.1)
== END 2021-10-17 03:05 | disposition home or self-care (01) ==
LOC: LBO 03:05
PROVIDERS: Family Medicine; PCP Family Medicine; Visit Provider Family Medicine
DX: E06.3 Autoimmune thyroiditis (principal); I10 Essential (primary) hypertension; K75.81 Nonalcoholic steatohepatitis (NASH); R79.89 Other specified abnormal findings of blood chemistry; R82.998 Other abnormal findings in urine; R10.9 Unspecified abdominal pain; R19.7 Diarrhea, unspecified
CPT/HCPCS: 36415; 80053; 80061; 83690; 87329; 87493; 87505; 81003; 81015; 82977; 83735; 85025

== ENCOUNTER 2021-10-19 02:45 | Outpatient (CLI) | payer OTHER, SELFPAY ==
[2021-10-19 12:45] LABS: ALT 91 U/L (14-59); AST 62 U/L (15-37); Albumin 3.3 g/dL (3.4-5.0); Alkaline Phosphatase 77 U/L (46-116); Anion Gap 10.4 mmol/L (3-11); BUN 9 mg/dL (7-18); Bilirubin, Total 0.7 mg/dL (0.2-1.0); CO2 26.6 mmol/L (21.0-32.0); CREATININE 0.8 mg/dL (0.55-1.02); Chloride 104 mmol/L (98-107); Glucose 109 mg/dL (74-106); Potassium 3.5 mmol/L (3.5-5.1); Sodium 141 mmol/L (136-145); Total Protein 6.7 g/dL (6.4-8.2)
== END 2021-10-19 02:46 | disposition home or self-care (01) ==
LOC: LOS 02:46
PROVIDERS: PCP Family Medicine; Visit Provider Family Medicine
DX: E06.3 Autoimmune thyroiditis (principal); I10 Essential (primary) hypertension; R79.89 Other specified abnormal findings of blood chemistry
CPT/HCPCS: 36415; 80053

== ENCOUNTER 2021-11-17 09:28 | Outpatient (REF) | payer OTHER, SELFPAY ==
[2021-11-17 11:29] LABS: C Diff PCR Positive (Negative)
== END 2021-11-17 09:29 | disposition home or self-care (01) ==
LOC: LBN 09:28
PROVIDERS: PCP Family Medicine; Visit Provider Family Medicine
DX: A04.72 Enterocolitis due to Clostridium difficile, not specified as recurrent (principal)
CPT/HCPCS: 87493

== ENCOUNTER 2021-11-28 03:28 | Outpatient (CLI) | payer OTHER, SELFPAY ==
[2021-11-28 09:55] LABS: ALT 133 U/L (14-59); AST 89 U/L (15-37); Albumin 3.7 g/dL (3.4-5.0); Alkaline Phosphatase 73 U/L (46-116); Anion Gap 11.5 mmol/L (3-11); BUN 5 mg/dL (7-18); Bilirubin, Total 0.8 mg/dL (0.2-1.0); CO2 25.5 mmol/L (21.0-32.0); CREATININE 0.7 mg/dL (0.55-1.02); Calcium 9.7 mg/dL (8.5-10.1); Chloride 104 mmol/L (98-107); Glucose 106 mg/dL (74-106); Magnesium 1.9 mg/dL (1.8-2.4); Potassium 3.9 mmol/L (3.5-5.1); Sodium 141 mmol/L (136-145); Total Protein 7.3 g/dL (6.4-8.2)
== END 2021-11-28 03:29 | disposition home or self-care (01) ==
LOC: LBO 03:29
PROVIDERS: PCP Family Medicine; Visit Provider Family Medicine
DX: K75.81 Nonalcoholic steatohepatitis (NASH) (principal); A04.72 Enterocolitis due to Clostridium difficile, not specified as recurrent
CPT/HCPCS: 36415; 80053; 83735

== ENCOUNTER 2021-12-16 13:16 | Outpatient (REF) | payer OTHER, SELFPAY ==
[2021-12-16 16:16] LABS: C Diff PCR Positive (Negative)
[2021-12-17 22:37] LABS: Campylobacter PCR Negative (Negative); Salmonella PCR Negative (Negative); Shiga Toxin PCR Negative (Negative); Shigella/Enteroinvasive Ecoli Negative (Negative)
== END 2021-12-16 13:17 | disposition home or self-care (01) ==
LOC: LBN 13:16
PROVIDERS: Family Medicine; PCP Family Medicine; Visit Provider Family Medicine
DX: A04.72 Enterocolitis due to Clostridium difficile, not specified as recurrent (principal); R19.7 Diarrhea, unspecified
CPT/HCPCS: 87493; 87505

== ENCOUNTER 2022-01-17 14:48 | Outpatient (CLI) | payer OTHER, SELFPAY ==
[2022-01-17 13:04] LABS: ALT 43 U/L (14-59); AST 40 U/L (15-37); Albumin 3.6 g/dL (3.4-5.0); Alkaline Phosphatase 59 U/L (46-116); Anion Gap 12.6 mmol/L (3-11); BUN 16 mg/dL (7-18); Bilirubin, Total 0.3 mg/dL (0.2-1.0); CO2 25.4 mmol/L (21.0-32.0); CREATININE 0.8 mg/dL (0.55-1.02); Calcium 8.8 mg/dL (8.5-10.1); Chloride 105 mmol/L (98-107); Estimated GFR 77.27 (mL/min/1.73m2); Glucose 107 mg/dL (74-106); Potassium 3.3 mmol/L (3.5-5.1); Sodium 143 mmol/L (136-145); Total Protein 6.7 g/dL (6.4-8.2)
== END 2022-01-17 14:49 | disposition home or self-care (01) ==
LOC: LOS 14:49
PROVIDERS: PCP Family Medicine; Visit Provider Family Medicine
DX: A04.72 Enterocolitis due to Clostridium difficile, not specified as recurrent (principal); K75.81 Nonalcoholic steatohepatitis (NASH)
CPT/HCPCS: 36415; 80053

== ENCOUNTER 2022-01-22 08:30 | Outpatient (CLI) | payer OTHER, SELFPAY ==
--- NOTE | 2022-01-22 08:45 | RT.EKG_ITS ---
APPROVED REPORT Exam: Resting ECG Reason for Exam: Irregular, rapid pulse Patient Location: O HR:98 bpm ECG Measurements Heart Rate 98 AXIS NH 188 P 73 QRSd 81 QRS 45 QT 385 T 66 QTc 492 Conclusion Sinus tachycardia...rate> 99 Ventricular premature complex...V complex w/ short R-R interval Probable left atrial enlargement...P >50mS, <-0.10mV V1 Anteroseptal infarct, age indeterminate...Q >35mS, T neg, V1-V2
== END 2022-01-22 08:31 | disposition home or self-care (01) ==
PROVIDERS: PCP Family Medicine; Visit Provider Family Medicine
DX: R00.0 Tachycardia, unspecified (principal); R09.89 Other specified symptoms and signs involving the circulatory and respiratory systems; I25.2 Old myocardial infarction; R94.31 Abnormal electrocardiogram [ECG] [EKG]
CPT/HCPCS: 93010

== ENCOUNTER 2022-01-24 12:30 | Outpatient (CLI) | payer OTHER, SELFPAY ==
[2022-01-24 14:20] LABS: Abs Immature Grans 0.01 10^3/uL (0.0-0.06); Absolute Basophil Count 0.02 10^3/uL (0.0-0.2); Absolute Eosinophil Count 0.24 10^3/uL (0.0-0.7); Absolute Lymphocyte Count 1.99 10^3/uL (1.2-3.4); Absolute Monocyte Count 0.43 10^3/uL (0.1-0.8); Absolute Neutrophil Count 4.99 10^3/uL (1.2-6.7); Basophils % 0.3; Eosinophils % 3.1; HCT 46.2 % (36.0-46.0); HGB 15.7 g/dL (11.2-15.7); Immature Grans % 0.1; Lymphocytes % 25.9; MCH 33.6 pg (27.0-33.0); MCV 99 fL (80-95); MPV 8.8 fL (8.0-11.0); Monocytes % 5.6; Platelet Count 226 10^3/uL (130-400); RBC 4.67 10^6/uL (3.93-5.22); RDW 11.9 % (11.7-14.6); WBC 7.68 10^3/uL (4.4-10.8)
[2022-01-24 15:44] LABS: ALT 46 U/L (14-59); AST 44 U/L (15-37); Albumin 4.4 g/dL (3.4-5.0); Alkaline Phosphatase 82 U/L (46-116); BUN 13 mg/dL (7-18); Bilirubin, Total 0.9 mg/dL (0.2-1.0); CREATININE 0.7 mg/dL (0.55-1.02); Calcium 9.8 mg/dL (8.5-10.1); Chloride 103 mmol/L (98-107); Glucose 99 mg/dL (74-106); Magnesium 1.7 mg/dL (1.8-2.4); Potassium 4.1 mmol/L (3.5-5.1); Sodium 141 mmol/L (136-145); TSH (W/Ref FT4) 2.18 uIU/mL (0.36-3.74); Total Protein 7.9 g/dL (6.4-8.2)
== END 2022-01-24 12:31 | disposition home or self-care (01) ==
LOC: LBO 12:30
PROVIDERS: PCP Family Medicine; Visit Provider Family Medicine
DX: R00.0 Tachycardia, unspecified (principal)
CPT/HCPCS: 36415; 80053; 83735; 84443; 85025

== ENCOUNTER → 2022-02-21 02:00 | Outpatient (CLI) | payer OTHER, SELFPAY ==
--- NOTE | 2022-02-21 07:00 | DI.US_ITS ---
Exam(s) US BREAST RT LIMITED MG MAMMO DIAGNOSTIC BI EXAM: MG MAMMO DIAGNOSTIC BI CLINICAL HISTORY: 9mo f/u,r92.8, rt breast solid hypoechocic areas. COMPARISON: 2012 through 19 May 2021. TECHNIQUE: Craniocaudal and mediolateral oblique Full Field Digital Mammography views of the both br easts breast with Computer Aided Diagnosis followed by Tomosynthesis and right breast ultrasound. FINDINGS: Mammography/Tomosynthesis: Masses/Architectural Distortion: No suspicious masses seen. Previously noted area of nodularity not as well seen. Microcalcifications: No suspicious pleomorphic-type are seen. Skin Thickening/Nipple Retraction: None. Right breast US: Echotexture: Normal appearance of the glandular tissue. Shadowing: No suspicious foci. Cyst: None. Solid lesions: Stable smoothly marginated hypoechoic nodule 11 o'clock position 2 cm from the nipple, measuring 7 x 4 x 5 millimeters. Two adjacent nodules were seen in the 8 o'clock position 2 cm from the nipple measuring 3 millimeters each in size. No suspicious features. Ductal dilation: None. IMPRESSION: 1. No evidence of malignancy is noted. 2. Unless there is more urgent need, follow-up screening mammography is recommended, as per [place] guidelines. BI-RADS Category 2 - Benign Findings Breast Density - Category C - Heterogeneously dense Breast density category C or D implies that the patient has dense breast tissue. Dense breast tissue is very common and is not abnormal but dense breast tissue can make it harder to find cancer on a ma mmogram. Also, dense breast tissue may increase their breast cancer risk. This information about the result of the mammogram report was provided to the patient to raise their awareness. Use this report when you speak with the patient about their risks for breast cancer, which includes their family hist ory. At that time, you may recommend for more screening tests (Ultrasound or MRI) as they might be us eful based on their risk. A negative radiographic report should not delay biopsy if a dominant or clinically suspicious mass is present. Up to ten percent of cancers are not identified on mammography. A negative report may reinforce clinical impression. Adenosis and dense breasts may obscure an underlying neoplasm. False positive reports average 6 to 10%. Patient will receive a letter notifying them of these results.
== END ==
PROVIDERS: PCP Family Medicine; Visit Provider Nurse Practitioner Family
DX: R92.8 Other abnormal and inconclusive findings on diagnostic imaging of breast (principal)
CPT/HCPCS: 76642; 77062; 77066; G0279

== ENCOUNTER 2022-08-17 01:58 | Outpatient (CLI) | payer MEDICARE, SELFPAY ==
[2022-08-17 15:05] LABS: Bilirubin Negative (Negative); Blood Trace-intact (Negative); Clarity Clear (Clear); Glucose Negative (Negative); Ketones Negative (Negative); Leukocyte Esterase Negative (Negative); Nitrite Negative (Negative); Urobilinogen 0.2 mg/dL (Up to 0.2)
[2022-08-17 15:18] LABS: Bacteria Negative HPF (Negative); C & S Indicated? No; Casts Negative LPF (Negative); Crystals Negative HPF (Negative); Epithelial Cells Few HPF (Negative); Mucus Negative (Negative); RBC 0-2 HPF (0-2); WBC 0-2 HPF (0-5)
[2022-08-17 15:36] LABS: ALT 35 U/L (14-59); AST 25 U/L (15-37); Albumin 3.7 g/dL (3.4-5.0); Alkaline Phosphatase 75 U/L (46-116); Anion Gap 9.5 mmol/L (3-11); BUN 6 mg/dL (7-18); Bilirubin, Total 0.5 mg/dL (0.2-1.0); CO2 26.5 mmol/L (21.0-32.0); CREATININE 0.7 mg/dL (0.55-1.02); Calcium 9.2 mg/dL (8.5-10.1); Calculated LDL 152 mg/dL (<100); Chloride 101 mmol/L (98-107); Cholesterol 250 mg/dL (<200); Glucose 101 mg/dL (74-106); HDL Cholesterol 63 mg/dL (40-60); Magnesium 1.6 mg/dL (1.8-2.4); Potassium 4.1 mmol/L (3.5-5.1); Sodium 137 mmol/L (136-145); TSH (W/Ref FT4) 2.16 uIU/mL (0.36-3.74); Total Protein 6.9 g/dL (6.4-8.2); Triglyceride 175 mg/dL (<150)
[2022-08-21 12:44] LABS: Apolipoprotein A1, S 159 mg/dL (>=140); Apolipoprotein B, S 117 mg/dL (See Comment); Apolipoprotein B/A 1 ratio 0.7 (See Comment)
== END 2022-08-17 01:59 | disposition home or self-care (01) ==
PROVIDERS: PCP Family Medicine; Visit Provider Family Medicine
DX: E03.9 Hypothyroidism, unspecified (principal); I10 Essential (primary) hypertension; R07.89 Other chest pain; R00.2 Palpitations; R39.15 Urgency of urination
CPT/HCPCS: 36415; 80053; 80061; 82172; 81003; 81015; 83735; 84443

== ENCOUNTER 2022-10-11 01:54 | Outpatient (CLI) | payer MEDICARE, SELFPAY ==
--- NOTE | 2022-10-11 07:15 | DI.DEXA_ITS ---
Exam(s) XR DEXA BONE DENSITY W/WO JESSICA EXAM: XR DEXA BONE DENSITY W/WO JESSICA CLINICAL HISTORY: post menopausal, asymptomatic menopausal state, Z78.0 TECHNIQUE: [employer] C densitometer analysis of left hip, lumbar spine and left forearm. Lat eral survey image of the thoracic and lumbar spine. COMPARISON: No exams were available for comparison FINDINGS: Lateral view of the thoracic and lumbar spine shows no evidence of compression fractures. Bone mineral density measurements of the lumbar spine correspond to a total T-score of -2.5, in the osteoporotic range. Bone mineral density measurements of the left hip correspond to a total T-score of -1.6. The femora l neck T-score is -2.2, in the osteopenic range.. The left forearm bone mineral density measurements correspond to a T-score of the distal 3rd of -3.1 , in the osteoporotic range.. 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 Osteopenia of the hip.
== END 2022-10-11 02:14 ==
LOC: DI 01:54
PROVIDERS: PCP Family Medicine; Visit Provider Family Medicine
DX: Z78.0 Asymptomatic menopausal state (principal); Z13.820 Encounter for screening for osteoporosis; M85.89 Other specified disorders of bone density and structure, multiple sites
CPT/HCPCS: 77080

== ENCOUNTER 2023-03-07 11:39 | Outpatient (REF) | payer MEDICARE, SELFPAY ==
--- NOTE | 2023-03-07 10:30 | PAPFT_PTH ---
PATIENT: Pipe Love LOC: [facility]#:[id number] AGE/SX: 77/F ROOM: RE03/07/[address]: Jud De La Paz MD, DC : 1945 BED: DIS: 03/07/2023 SPEC #: [id number] RECD: 03/07/23 12:49 STATUS: VSEN REQ #: [id number] ADIN: 03/07/23 10:[address]: Jud De La Paz DEPT: [facility] Cytology RECD BY: Melania Knapp Tissues: 1 - CX/ENDOCX FOR PAP SMEARS Procedures: PAP THIN PREP/[facility] Screening HPV DNA PROBE Comments: [id number]
== END 2023-03-07 11:40 | disposition home or self-care (01) ==
LOC: LBN 11:39
PROVIDERS: PCP Family Medicine; Visit Provider Family Medicine
DX: Z12.4 Encounter for screening for malignant neoplasm of cervix (principal); Z11.51 Encounter for screening for human papillomavirus (HPV); R87.612 Low grade squamous intraepithelial lesion on cytologic smear of cervix (LGSIL); Z01.419 Encounter for gynecological examination (general) (routine) without abnormal findings
CPT/HCPCS: 88142; 87624

== ENCOUNTER 2023-08-02 01:20 | Outpatient (CLI) | payer MEDICARE, SELFPAY ==
[2023-08-02 14:50] LABS: HCT 26.2 % (36.0-46.0); HGB 7.7 g/dL (11.2-15.7); MCH 24.6 pg (27.0-33.0); MCHC 29.4 % (32.0-36.0); MCV 84 fL (80-95); MPV 9.3 fL (8.0-11.0); Platelet Count 336 10^3/uL (130-400); RBC 3.13 10^6/uL (3.93-5.22); RDW 16.4 % (11.7-14.6); RDW-SD 50.2 fL
[2023-08-02 15:57] LABS: ALT 38 U/L (14-59); AST 29 U/L (15-37); Albumin 4.1 g/dL (3.4-5.0); Alkaline Phosphatase 72 U/L (46-116); Anion Gap 15.6 mmol/L (3-11); BUN 16 mg/dL (7-18); Bilirubin, Total 0.5 mg/dL (0.2-1.0); CO2 23.4 mmol/L (21.0-32.0); CREATININE 0.8 mg/dL (0.55-1.02); Calcium 9.1 mg/dL (8.5-10.1); Chloride 103 mmol/L (98-107); Estimated GFR 76.79 (mL/min/1.73m2); Ferritin 13 ng/mL (8-252); Glucose 116 mg/dL (74-106); Potassium 3.7 mmol/L (3.5-5.1); Sodium 142 mmol/L (136-145); Total Protein 7.3 g/dL (6.4-8.2)
[2023-08-02 16:11] LABS: Iron 14 ug/dL (50-170)
== END 2023-08-02 01:21 | disposition home or self-care (01) ==
LOC: LBO 01:21
PROVIDERS: PCP Family Medicine; Visit Provider Family Medicine
DX: D64.9 Anemia, unspecified (principal); I10 Essential (primary) hypertension
CPT/HCPCS: 36415; 80053; 85027; 82728; 83540

== ENCOUNTER 2023-08-05 08:00 | Outpatient (CLI) | payer MEDICARE, SELFPAY ==
[2023-08-05 12:30] LABS: Abs Immature Grans 0.01 10^3/uL (0.0-0.06); Absolute Basophil Count 0.02 10^3/uL (0.0-0.2); Absolute Eosinophil Count 0.12 10^3/uL (0.0-0.7); Absolute Lymphocyte Count 0.85 10^3/uL (1.2-3.4); Absolute Monocyte Count 0.35 10^3/uL (0.1-0.8); Absolute Neutrophil Count 1.94 10^3/uL (1.2-6.7); Basophils % 0.6; Eosinophils % 3.6; HCT 27.7 % (36.0-46.0); Immature Grans % 0.3; Lymphocytes % 25.8; MCH 24.9 pg (27.0-33.0); MCHC 28.9 % (32.0-36.0); MCV 86 fL (80-95); MPV 9.8 fL (8.0-11.0); Monocytes % 10.6; Neutrophils % 59.1; Platelet Count 298 10^3/uL (130-400); RBC 3.21 10^6/uL (3.93-5.22); RDW 16.3 % (11.7-14.6); Reticulocyte 2.1 % (0.5-2.4); WBC 3.29 10^3/uL (4.4-10.8)
[2023-08-05 12:40] LABS: INR 1.1 (0.9-1.1); Prothrombin Time 11.2 sec (9.1-11.1)
[2023-08-05 13:15] LABS: Calculated LDL 66 mg/dL (<100); Cholesterol 212 mg/dL (<200); HDL Cholesterol 127 mg/dL (40-60); TSH (W/Ref FT4) 2.24 uIU/mL (0.36-3.74); Triglyceride 95 mg/dL (<150)
[2023-08-05 13:20] LABS: GGT 69 U/L (5-55)
== END 2023-08-05 08:01 | disposition home or self-care (01) ==
LOC: LOS 08:01
PROVIDERS: PCP Family Medicine; Referring Provider Family Medicine; Visit Provider Family Medicine
DX: E03.9 Hypothyroidism, unspecified (principal); D50.9 Iron deficiency anemia, unspecified; R74.8 Abnormal levels of other serum enzymes; I10 Essential (primary) hypertension
CPT/HCPCS: 36415; 80061; 71046; 82977; 84443; 85025; 85045; 85610

== ENCOUNTER → 2023-08-05 12:59 | Outpatient (CLI) | payer MEDICARE, SELFPAY ==
--- NOTE | 2023-08-05 11:00 | DI.RAD_ITS ---
Exam(s) XR CHEST 2V PA LATERAL EXAM: XR CHEST 2V PA LATERAL CLINICAL HISTORY: h/o smoking, anorexia and anemia D64.9, Z87.891. TECHNIQUE: 2D digital imaging was performed. COMPARISON: No exams were available for comparison FINDINGS: 2 views: Heart size is normal. The mediastinum is not widened. Lungs are clear. No infiltrates nor pleural effusions. IMPRESSION: No acute pulmonary findings. DATA REPOSITORY: RADIATION DOSE DELIVERED:
== END ==
PROVIDERS: PCP Family Medicine; Visit Provider Family Medicine
DX: D64.9 Anemia, unspecified (principal); Z87.891 Personal history of nicotine dependence
CPT/HCPCS: 71046

== ENCOUNTER 2023-08-20 15:54 | Outpatient (CLI) | payer MEDICARE, SELFPAY ==
[2023-08-20 15:06] LABS: HCT 32.6 % (36.0-46.0); HGB 9.4 g/dL (11.2-15.7); MCH 25.5 pg (27.0-33.0); MCHC 28.8 % (32.0-36.0); MCV 89 fL (80-95); MPV 9.1 fL (8.0-11.0); Platelet Count 286 10^3/uL (130-400); RBC 3.68 10^6/uL (3.93-5.22); RDW 19.3 % (11.7-14.6); RDW-SD 62.5 fL; WBC 4.87 10^3/uL (4.4-10.8)
== END 2023-08-20 15:55 | disposition home or self-care (01) ==
LOC: LBO 15:56
PROVIDERS: PCP Family Medicine; Visit Provider Family Medicine
DX: D64.9 Anemia, unspecified (principal)
CPT/HCPCS: 36415; 85027; 96365; J2916

== ENCOUNTER 2023-08-26 13:04 | Outpatient (CLI) | payer MEDICARE, SELFPAY ==
[2023-08-26 12:55] LABS: HCT 34.7 % (36.0-46.0); HGB 10.1 g/dL (11.2-15.7); MCH 26.2 pg (27.0-33.0); MCHC 29.1 % (32.0-36.0); MCV 90 fL (80-95); MPV 8.8 fL (8.0-11.0); Platelet Count 278 10^3/uL (130-400); RBC 3.85 10^6/uL (3.93-5.22); RDW 20.9 % (11.7-14.6); RDW-SD 66.2 fL
== END 2023-08-26 13:05 | disposition home or self-care (01) ==
LOC: LBO 13:07
PROVIDERS: PCP Family Medicine; Visit Provider Family Medicine
DX: K26.9 Duodenal ulcer, unspecified as acute or chronic, without hemorrhage or perforation (principal)
CPT/HCPCS: 36415; 85027

== ENCOUNTER 2023-09-03 01:10 | Outpatient (RCR) | payer MEDICARE, SELFPAY ==
[2023-08-13] MEDS: Normal Saline Flush 10 ML SYR IVP (09:03)
[2023-08-13] MEDS: SODIUM FER. GLUC./SUC. 125 MG in Normal Saline 100 ML 110 MG IVPB (09:03)
[2023-08-13 11:14] LABS: HCT 26.6 % (36.0-46.0); HGB 7.8 g/dL (11.2-15.7); MCHC 29.3 % (32.0-36.0); MCV 86 fL (80-95); MPV 9.8 fL (8.0-11.0); Platelet Count 251 10^3/uL (130-400); RBC 3.08 10^6/uL (3.93-5.22); RDW 17.5 % (11.7-14.6); RDW-SD 54.4 fL; WBC 3.02 10^3/uL (4.4-10.8)
[2023-08-13 11:26] LABS: MCH 25.3 pg (27.0-33.0)
[2023-08-20] MEDS: SODIUM FER. GLUC./SUC. 125 MG in Normal Saline 100 ML 110 MG IVPB (13:32)
[2023-08-20] MEDS: Normal Saline Flush 10 ML SYR IVP (13:32)
[2023-08-27] MEDS: SODIUM FER. GLUC./SUC. 125 MG in Normal Saline 100 ML 110 MG IVPB (12:58)
[2023-08-27] MEDS: Normal Saline Flush 10 ML SYR IVP (12:58)
[2023-09-03] MEDS: SODIUM FER. GLUC./SUC. 125 MG in Normal Saline 100 ML 110 MG IVPB (12:48)
[2023-09-03] MEDS: Normal Saline Flush 10 ML SYR IVP (12:49)
== END 2023-09-06 23:59 | disposition home or self-care (01) ==
LOC: INF 01:10
PROVIDERS: PCP Family Medicine; Visit Provider Family Medicine
DX: D64.9 Anemia, unspecified (principal)
CPT/HCPCS: 36415; 85027; 96365; J2916

== ENCOUNTER 2023-09-03 13:54 | Outpatient (CLI) | payer MEDICARE, SELFPAY ==
[2023-09-03 12:11] LABS: HCT 39.4 % (36.0-46.0); MCH 27.7 pg (27.0-33.0); MCHC 30.2 % (32.0-36.0); MCV 92 fL (80-95); MPV 9.8 fL (8.0-11.0); Platelet Count 252 10^3/uL (130-400); RBC 4.29 10^6/uL (3.93-5.22); RDW-SD 81.8 fL; WBC 3.63 10^3/uL (4.4-10.8)
[2023-09-03 14:11] LABS: HGB 11.9 g/dL (11.2-15.7)
[2023-09-03 14:12] LABS: RDW 24.6 % (11.7-14.6)
== END 2023-09-03 13:55 | disposition home or self-care (01) ==
LOC: LBO 13:55
PROVIDERS: PCP Family Medicine; Visit Provider Family Medicine
DX: D64.9 Anemia, unspecified (principal)
CPT/HCPCS: 36415; 85027; 96365; J2916

== ENCOUNTER 2023-10-04 12:22 | Outpatient (CLI) | payer MEDICARE, SELFPAY ==
[2023-10-04 13:01] LABS: HCT 43.9 % (36.0-46.0); HGB 14.6 g/dL (11.2-15.7); MCH 30.5 pg (27.0-33.0); MCHC 33.3 % (32.0-36.0); MCV 92 fL (80-95); MPV 9.1 fL (8.0-11.0); Platelet Count 293 10^3/uL (130-400); RBC 4.79 10^6/uL (3.93-5.22); RDW 23.3 % (11.7-14.6); RDW-SD 74.9 fL
[2023-10-04 13:39] LABS: Ferritin 143 ng/mL (8-252)
[2023-10-04 13:54] LABS: Iron 124 ug/dL (50-170)
== END 2023-10-04 12:23 | disposition home or self-care (01) ==
LOC: LBO 12:22
PROVIDERS: PCP Family Medicine; Visit Provider Family Medicine
DX: K25.9 Gastric ulcer, unspecified as acute or chronic, without hemorrhage or perforation (principal)
CPT/HCPCS: 36415; 85027; 82728; 83540

== ENCOUNTER 2023-11-06 02:30 | Outpatient (CLI) | payer MEDICARE, SELFPAY ==
[2023-11-06 12:10] LABS: HCT 44.5 % (36.0-46.0); HGB 14.8 g/dL (11.2-15.7); MCH 31.6 pg (27.0-33.0); MCHC 33.3 % (32.0-36.0); MCV 95 fL (80-95); MPV 9.8 fL (8.0-11.0); Platelet Count 219 10^3/uL (130-400); RBC 4.69 10^6/uL (3.93-5.22); RDW 17.2 % (11.7-14.6); RDW-SD 60.6 fL
== END 2023-11-06 02:31 | disposition home or self-care (01) ==
LOC: LBO 02:30
PROVIDERS: PCP Family Medicine; Visit Provider Family Medicine
DX: K26.9 Duodenal ulcer, unspecified as acute or chronic, without hemorrhage or perforation (principal)
CPT/HCPCS: 36415; 85027

== ENCOUNTER 2023-12-19 13:39 | Outpatient (REF) | payer MEDICARE, SELFPAY ==
--- NOTE | 2023-12-19 11:20 | PAPFT_PTH ---
PATIENT: Pipe Love LOC: [facility] U#:[id number] AGE/SX: 78/F ROOM: RE12/19/[address]: Jdu De La Paz MD, DC : 1945 BED: DIS: 12/19/2023 SPEC #: [id number] RECD: 12/19/23 17:58 STATUS: WALLYFidelina REQ #: [id number] ADIN: 12/19/23 11:[address]: Unknown,Unknown DEPT: [facility] Cytology RECD BY: Melania Knapp ENTERED: 12/19/23 17:58 SP TYPE: PAPFT OTHR DR: Jud De La Paz MD, DC Tissues: 1 - CX/ENDOCX FOR PAP SMEARS Procedures: PAP THIN PREP/[facility] Screening HPV DNA PROBE Comments: [id number] (HPV 16 & 18/45)
== END 2023-12-19 13:59 ==
LOC: DI 13:39
PROVIDERS: PCP Family Medicine; Visit Provider Family Medicine
DX: Z11.51 Encounter for screening for human papillomavirus (HPV) (principal); Z01.419 Encounter for gynecological examination (general) (routine) without abnormal findings
CPT/HCPCS: 88142; 87624

== ENCOUNTER 2024-01-08 11:39 | Outpatient (CLI) | payer MEDICARE, SELFPAY ==
[2024-01-08 12:14] LABS: HCT 40.1 % (36.0-46.0); HGB 13.6 g/dL (11.2-15.7); MCH 35.3 pg (27.0-33.0); MCHC 33.9 % (32.0-36.0); MCV 104 fL (80-95); MPV 8.8 fL (8.0-11.0); Platelet Count 157 10^3/uL (130-400); RBC 3.85 10^6/uL (3.93-5.22); WBC 5.74 10^3/uL (4.4-10.8)
== END 2024-01-08 11:40 | disposition home or self-care (01) ==
LOC: LBO 11:43
PROVIDERS: PCP Family Medicine; Visit Provider Family Medicine
DX: K26.9 Duodenal ulcer, unspecified as acute or chronic, without hemorrhage or perforation (principal)
CPT/HCPCS: 36415; 85027

== ENCOUNTER 2024-01-09 11:45 | Outpatient (CLI) | payer MEDICARE, SELFPAY ==
[2024-01-09 12:49] LABS: Vitamin B12 510 pg/mL (193-986)
[2024-01-09 12:51] LABS: Folate > 20.0 ng/mL (8.6-20.0)
== END 2024-01-09 11:46 | disposition home or self-care (01) ==
LOC: LBO 11:49
PROVIDERS: PCP Family Medicine; Visit Provider Family Medicine
DX: D64.9 Anemia, unspecified
CPT/HCPCS: 36415; 82607; 82746

== ENCOUNTER 2024-02-10 13:03 | Outpatient (CLI) | payer MEDICARE, SELFPAY ==
[2024-02-10 13:21] LABS: HCT 38.7 % (36.0-46.0); MCH 34.6 pg (27.0-33.0); MCHC 33.6 % (32.0-36.0); MCV 103 fL (80-95); MPV 8.8 fL (8.0-11.0); Platelet Count 258 10^3/uL (130-400); RBC 3.76 10^6/uL (3.93-5.22); RDW 13.3 % (11.7-14.6); RDW-SD 51.4 fL; WBC 5.53 10^3/uL (4.4-10.8)
[2024-02-10 14:18] LABS: ALT 57 U/L (14-59); AST 50 U/L (15-37); Albumin 3.8 g/dL (3.4-5.0); Alkaline Phosphatase 92 U/L (46-116); Anion Gap 9.6 mmol/L (3-11); BUN 15 mg/dL (7-18); Bilirubin, Total 0.28 mg/dL (0.2-1.0); CO2 25.4 mmol/L (21.0-32.0); CREATININE 0.7 mg/dL (0.55-1.02); Calcium 9.1 mg/dL (8.5-10.1); Chloride 110 mmol/L (98-107); Estimated GFR 89.58 (mL/min/1.73m2); Glucose 84 mg/dL (74-106); Potassium 4.1 mmol/L (3.5-5.1); Sodium 145 mmol/L (136-145); Total Protein 7.5 g/dL (6.4-8.2)
== END 2024-02-10 13:04 | disposition home or self-care (01) ==
LOC: LBO 13:04
PROVIDERS: PCP Family Medicine; Visit Provider Family Medicine
DX: D64.9 Anemia, unspecified (principal); I10 Essential (primary) hypertension
CPT/HCPCS: 36415; 80053; 85027

== ENCOUNTER 2024-05-11 14:13 | Outpatient (CLI) | payer MEDICARE, SELFPAY ==
[2024-05-11 10:19] LABS: HCT 35.8 % (36.0-46.0); HGB 10.7 g/dL (11.2-15.7); MCH 28.4 pg (27.0-33.0); MCHC 29.9 % (32.0-36.0); MCV 95 fL (80-95); MPV 9.7 fL (8.0-11.0); Platelet Count 225 10^3/uL (130-400); RBC 3.77 10^6/uL (3.93-5.22); RDW 13.9 % (11.7-14.6); RDW-SD 48.7 fL; WBC 3.84 10^3/uL (4.4-10.8)
[2024-05-11 10:48] LABS: Ferritin 19 ng/mL (8-252); TSH (W/Ref FT4) 1.91 uIU/mL (0.36-3.74)
== END 2024-05-11 14:14 | disposition home or self-care (01) ==
LOC: LBO 14:13
PROVIDERS: PCP Family Medicine; Visit Provider Family Medicine
DX: D64.9 Anemia, unspecified (principal); E03.9 Hypothyroidism, unspecified
CPT/HCPCS: 36415; 85027; 82728; 84443

== ENCOUNTER 2024-07-16 12:18 | Outpatient (CLI) | payer MEDICARE, SELFPAY ==
[2024-07-16 12:43] LABS: Abs Immature Grans 0.01 10^3/uL (0.0-0.06); Absolute Basophil Count 0.02 10^3/uL (0.0-0.2); Absolute Eosinophil Count 0.14 10^3/uL (0.0-0.7); Absolute Lymphocyte Count 1.71 10^3/uL (1.2-3.4); Absolute Neutrophil Count 3.32 10^3/uL (1.2-6.7); Basophils % 0.4 %; Eosinophils % 2.5 %; HCT 40.9 % (36.0-46.0); HGB 13.4 g/dL (11.2-15.7); Immature Grans % 0.2 %; Lymphocytes % 30.5 %; MCH 32.6 pg (27.0-33.0); MCHC 32.8 % (32.0-36.0); MCV 100 fL (80-95); MPV 9.2 fL (8.0-11.0); Monocytes % 7.1 %; Neutrophils % 59.3 %; Platelet Count 220 10^3/uL (130-400); RBC 4.11 10^6/uL (3.93-5.22); RDW 18.6 % (11.7-14.6)
[2024-07-16 13:45] LABS: Iron 165 ug/dL (50-170)
[2024-07-16 13:55] LABS: Ferritin 73 ng/mL (8-252)
== END 2024-07-16 12:19 | disposition home or self-care (01) ==
LOC: LBO 12:18
PROVIDERS: PCP Family Medicine; Visit Provider Family Medicine
DX: K25.9 Gastric ulcer, unspecified as acute or chronic, without hemorrhage or perforation (principal)
CPT/HCPCS: 36415; 82728; 83540; 85025

== ENCOUNTER 2024-08-21 12:23 | Outpatient (CLI) | payer MEDICARE, SELFPAY ==
[2024-08-21 14:37] LABS: HCT 41.8 % (36.0-46.0); HGB 14.1 g/dL (11.2-15.7); MCH 34.1 pg (27.0-33.0); MCHC 33.7 % (32.0-36.0); MCV 101 fL (80-95); MPV 8.9 fL (8.0-11.0); Platelet Count 244 10^3/uL (130-400); RBC 4.13 10^6/uL (3.93-5.22); RDW 14.9 % (11.7-14.6); RDW-SD 54.7 fL; WBC 5.72 10^3/uL (4.4-10.8)
[2024-08-21 16:56] LABS: Iron 172 ug/dL (50-170)
[2024-08-21 17:01] LABS: Ferritin 45 ng/mL (8-252)
== END 2024-08-21 12:24 | disposition home or self-care (01) ==
LOC: LBO 12:24
PROVIDERS: PCP Family Medicine; Visit Provider Family Medicine
DX: K25.9 Gastric ulcer, unspecified as acute or chronic, without hemorrhage or perforation (principal)
CPT/HCPCS: 36415; 85027; 82728; 83540

== ENCOUNTER 2024-11-11 01:25 | Outpatient (CLI) | payer MEDICARE, SELFPAY ==
--- NOTE | 2024-11-11 06:29 | DI.MAMMO_ITS ---
Exam(s) MAMMO SCREENING EXAM: MAMMO SCREENING CLINICAL HISTORY: screening,Z12.39 TECHNIQUE: Bilateral full field digital CC and MLO mammographic images were obtained with 3D tomosynthesis and utilizing computer aided detection (CAD). COMPARISON: Comparison is made with prior examinations. FINDINGS: Masses/Architectural Distortion: No suspicious masses or areas of architectural distortion are present. Microcalcifications: No suspicious pleomorphic-type are seen. Skin Thickening/Nipple Retraction: None. IMPRESSION: 1. No significant interval change with no specific features of malignancy noted. 2. Unless there is more urgent need, screening mammography is recommended, as per [place] [employer] guidelines. BI-RADS Category 1 - Negative Breast Density - Category C - The breast are heterogeneously dense, which may obscure small masses. Breast density Category C or D implies that the patient has dense breast tissue. Dense breast tissue can make it harder to find cancer on a mammogram. Dense breast tissue is also associated with an increased risk of breast cancer. This information about the result of the mammogram report was provided to the patient to raise their awareness. Use this report when you speak with the patient about their risks for breast cancer, which includes their family history. At that time, you may recommend additional screening tests (Ultrasound or MRI) as these tests may add significant information. A negative radiographic report should not delay biopsy if a dominant or clinically suspicious mass is present. Up to ten percent of cancers are not identified on mammography. A negative report may reinforce clinical impression. Adenosis and dense breasts may obscure an underlying neoplasm. False positive reports average 6 to 10%. Patient will receive a letter notifying them of these results.
== END 2024-11-11 01:45 ==
LOC: DI 01:25
PROVIDERS: PCP Family Medicine; Visit Provider Family Medicine
DX: Z12.31 Encounter for screening mammogram for malignant neoplasm of breast (principal); R92.333 Mammographic heterogeneous density, bilateral breasts
CPT/HCPCS: 77063; 77067

== ENCOUNTER 2024-11-30 14:25 | Outpatient (CLI) | payer MEDICARE, SELFPAY ==
[2024-11-30 12:38] LABS: HCT 37.8 % (36.0-46.0); HGB 12.1 g/dL (11.2-15.7); MCH 33.1 pg (27.0-33.0); MCHC 32.0 % (32.0-36.0); MCV 103 fL (80-95); MPV 9.0 fL (8.0-11.0); Platelet Count 263 10^3/uL (130-400); RBC 3.66 10^6/uL (3.93-5.22); RDW 13.5 % (11.7-14.6); RDW-SD 51.8 fL; WBC 4.95 10^3/uL (4.4-10.8)
== END 2024-11-30 14:26 | disposition home or self-care (01) ==
LOC: LBO 14:25
PROVIDERS: PCP Family Medicine; Visit Provider Family Medicine
DX: D64.9 Anemia, unspecified (principal)
CPT/HCPCS: 36415; 85027